=== PATIENT | female | born 1935 | race Caucasian/White ===

== ENCOUNTER → 2017-08-04 | Outpatient (CLI) | payer MEDICARE ==
--- NOTE | 2017-08-04 13:41 | XR ---
EXAMINATION TYPE: XR chest 2V DATE OF EXAM: 08/04/2017 COMPARISON: NONE HISTORY: Upper respiratory infection TECHNIQUE: Frontal and lateral views of the chest are obtained. FINDINGS: Increased AP diameter of the chest may be indicative of underlying COPD. The heart is enla rged. Difficult to exclude thoracic aortic aneurysm, patient is rotated. Postop change noted to the l eft shoulder. Arthropathy noted in the right shoulder. Pulmonary vascularity and nicholas within normal l imits. No focal airspace disease evident. No pneumothorax or pleural effusion. IMPRESSION: Cardiomegaly. Appearance of thoracic ectasia with the due to rotation, follow-up suggest ed.
== END | disposition home or self-care (01) ==
LOC: RADXRMAIN 12:06
PROVIDERS: ATTEND Internal Medicine
DX: I51.7 Cardiomegaly (principal); J06.9 Acute upper respiratory infection, unspecified
CPT/HCPCS: 71046

== ENCOUNTER → 2019-05-09 | Outpatient (CLI) | payer MEDICARE ==
--- NOTE | 2019-05-10 12:00 | ECHOF ---
Referral Reason:I50.9 Congestive heart failure MEASUREMENTS -------- HEIGHT: 154.9 cm WEIGHT: 74.4 kg BP: RVIDd: 4.5 cm (< 3.3) IVSd: 1.2 cm (0.6 - 1.1) LVIDd: 4.5 cm (3.9 - 5.3) LVPWd: 1.4 cm (0.6 - 1.1) IVSs: 2.1 cm LVIDs: 3.0 cm LVPWs: 1.4 cm LAESV Index (A-L): 35.61 ml/m Ao Diam: 3.1 cm (2.0 - 3.7) AV Cusp: 1.5 cm (1.5 - 2.6) MV EXCURSION: 20.824 mm (> 18.000) MV EF SLOPE: 136 mm/s (70 - 150) EPSS: 0.9 cm MV E Tong: 1.49 m/s MV DecT: 152 ms MV A Tong: 0.28 m/s MV E/A Ratio: 5.42 RAP: 5.00 mmHg RVSP: 56.59 mmHg FINDINGS -------- Sinus rhythm. Atrial fibrillation. This was a technically adequate study. The left ventricular size is normal. There is moderate concentric left ventricular hypertrophy. O verall left ventricular systolic function is normal with, an EF between 55 - 60 %. Increased Lap Gr kelly II Diastolic Dysfunction. The right ventricle is moderately enlarged. LA is moderately dilated 34-39 ml/m2 The right atrium is moderately enlarged. Interatrial and interventricular septum intact. The aortic valve was not well visualized. There is no evidence of aortic regurgitation. There is no evidence of aortic stenosis. Uxlu-ej-cfrgbkum mitral regurgitation is present. Moderate tricuspid regurgitation present. There is moderate pulmonary hypertension. The right marci tricular systolic pressure, as measured by Doppler, is 56.59mmHg. Trace/mild (physiologic) pulmonic regurgitation. The aortic root size is normal. The inferior vena cava is mildly dilated. The inferior vena cava is dilated with poor inspiratory c ollapse which is consistent with estimated right atrial pressure of 20 mmHg. There is no pericardial effusion. CONCLUSIONS -------- 1. Sinus rhythm. 2. Atrial fibrillation. 3. This was a technically adequate study. 4. The left ventricular size is normal. 5. There is moderate concentric left ventricular hypertrophy. 6. Overall left ventricular systolic function is normal with, an EF between 55 - 60 %. 7. Increased Lap Grade II Diastolic Dysfunction. 8. The right ventricle is moderately enlarged. 9. LA is moderately dilated 34-39 ml/m2 10. The right atrium is moderately enlarged. 11. Interatrial and interventricular septum intact. 12. The aortic valve was not well visualized. 13. There is no evidence of aortic regurgitation. 14. There is no evidence of aortic stenosis. 15. Yxah-np-cjngwwpi mitral regurgitation is present. 16. Moderate tricuspid regurgitation present. 17. There is moderate pulmonary hypertension. 18. The right ventricular systolic pressure, as measured by Doppler, is 56.59mmHg. 19. Trace/mild (physiologic) pulmonic regurgitation. 20. The aortic root size is normal. 21. The inferior vena cava is mildly dilated. 22. The inferior vena cava is dilated with poor inspiratory collapse which is consistent with estimat ed right atrial pressure of 20 mmHg. 23. There is no pericardial effusion. 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
== END | disposition home or self-care (01) ==
LOC: RADECHMAIN 16:08
PROVIDERS: ATTEND Internal Medicine
DX: I48.91 Unspecified atrial fibrillation (principal); I08.1 Rheumatic disorders of both mitral and tricuspid valves; I27.20 Pulmonary hypertension, unspecified; I50.9 Heart failure, unspecified
CPT/HCPCS: 93306

== ENCOUNTER 2020-05-02 15:15 | Inpatient (IN) | payer MEDICARE ==
[2020-05-02 15:30] LABS: Glucose,Whole Blood 143 mg/dL (75-99)
--- NOTE | 2020-05-02 15:37 | ED ---
General Adult HPI - General Chief complaint: Neuro Symptoms/Deficit Stated complaint: Trouble talking/cant remember PCP Time Seen by Provider: 05/02/20 15:23 Source: patient Mode of arrival: wheelchair Limitations: no limitations - History of Present Illness Initial comments: Dictation was produced using [employer] dictation software. please excuse any grammatical, word or spelling errors. This patient was cared for during a federal and state declared state of emergency secondary to Covid 19 Chief Complaint: 84-year-old female past medical history of thyroid disease hypertension presents with strokelike symptoms. History of Present Illness: 84-year-old female she was on the phone talking with a friend when she noted she was having difficulty speaking. Patient was concerned she was having a stroke because her has history of stroke. She came to the emergency department to be evaluated. Patient denies any numbness and paresthesias to the arms or legs patient denies any weakness to the extremities. No difficulty ambulating. Patient has history of hypertension. She has no history of stroke or transient ischemic attack. Patient states she still has trouble speaking which is unlike her. At approximately 9 AM was last time she felt like she was normal. She was having bile study with her family and was able to speak fluently. She does not know exactly when her symptoms started until she began talking approximately 1 PM today on the phone. The ROS documented in this emergency department record has been reviewed and confirmed by me. Those systems with pertinent positive or negative responses have been documented in the HPI. All other systems are other negative and/or noncontributory. PHYSICAL EXAM: General Impression: Alert and oriented x3, not in acute distress HEENT: Normocephalic atraumatic, extra-ocular movements intact, pupils equal and reactive to light bilaterally, mucous membranes moist. Cardiovascular: Heart regular rate and rhythm Chest: Able to complete full sentences, no retractions, no tachypnea Abdomen: abdomen soft, non-tender, non-distended, no organomegaly Musculoskeletal: Pulses present and equal in all extremities, no peripheral edema Motor: no focal deficits noted Neurological: CN II-XII grossly intact, no focal motor or sensory deficits noted, nih of 1 for mild word finding difficulties. Skin: Intact with no visualized rashes Psych: Normal affect and mood ED course: 84-year-old female with past medical history hypertension presents with strokelike symptoms. Patient given in NIH stroke scale score of 1 for mild word finding difficulties. She is coherent and able to identify all the words and speak clearly however has delayed responses. Vital signs upon arrival shows blood pressure 221/88, rest of vital signs within acceptable limits. Blood sugar is 140 at bedside. Code stroke was paged. Time of onset is not entirely clear however she noticed her symptoms initially at 1 PM. Patient not a candidate for TPA given low NIH score, unclear time of onset and risks outweigh the benefits. Case is discussed with stroke neurologist on-call Dr. Perez who recommended no TPA at this time given that there is no clear, onset of symptoms. CT brain and CT angioma of the head and neck shows no acute processes. No indication for thrombectomy. EKG shows A. fib. Patient is no history of cardiac dysrhythmias. Patient started on heparin.Laboratory evaluation obtained. CBC, coag panel, metabolic panel is unremarkable. Troponin is negative. Patient started on heparin for new onset atrial fibrillation. She is given an aspirin. [facility]. Neurology and cardiology will consult. EKG interpretation: Ventricular rate 44, A. fib, QRS 92, QTC 398. No MT prolongation, no QTC prolongation, no ST or T-wave changes noted. New-onset A. fib - Related Data Home Medications Medication Instructions Recorded Confirmed ALPRAZolam [Xanax] 0.25 mg PO HS PRN 05/02/20 05/02/20 Brimonidine Tartrate [Alphagan P 1 drops BOTH EYES BID 05/02/20 05/02/20 0.2% Ophth Soln] Levothyroxine Sodium [Synthroid] 100 mcg PO DAILY 05/02/20 05/02/20 Lisinopril [Zestril] 10 mg PO BID 05/02/20 05/02/20 NIFEdipine [Procardia XL] 60 mg PO DAILY 05/02/20 05/02/20 Allergies Allergy/AdvReac Type Severity Reaction Status Date / Time No Known Allergies Allergy Verified 04/29/19 12:26 Review of Systems ROS Statement: Those systems with pertinent positive or pertinent negative responses have been documented in the HPI. ROS Other: All systems not noted in ROS Statement are negative. Past Medical History Past Medical History: Hypertension History of Any Multi-Drug Resistant Organisms: None Reported Past Surgical History: Cholecystectomy, Orthopedic Surgery Past Psychological History: No Psychological Hx Reported Smoking Status: Never smoker Past Alcohol Use History: None Reported Past Drug Use History: None Reported General Exam Limitations: no limitations Course Vital Signs 05/02/20 05/02/20 05/02/20 15:20 15:30 15:45 Temperature 97.9 F Pulse Rate 60 60 51 L Respiratory 18 18 17 Rate Blood Pressure 221/88 134/75 115/65 O2 Sat by Pulse 95 96 96 Oximetry Medical Decision Making - Lab Data Result diagrams: 05/02/20 15:46 05/02/20 15:46 Lab Results 05/02/20 05/02/20 05/02/20 Range/Units 15:28 15:46 15:46 WBC 5.6 (3.8-10.6) k/uL RBC 5.39 (3.80-5.40) m/uL Hgb 16.3 H (11.4-16.0) gm/dL Hct 49.2 H (34.0-46.0) % MCV 91.3 (80.0-100.0) fL MCH 30.2 (25.0-35.0) pg MCHC 33.1 (31.0-37.0) g/dL RDW 13.0 (11.5-15.5) % Plt Count 265 (150-450) k/uL MPV 7.5 Neutrophils % 70 % Lymphocytes % 18 % Monocytes % 6 % Eosinophils % 3 % Basophils % 1 % Neutrophils # 3.9 (1.3-7.7) k/uL Lymphocytes # 1.0 (1.0-4.8) k/uL Monocytes # 0.4 (0-1.0) k/uL Eosinophils # 0.2 (0-0.7) k/uL Basophils # 0.0 (0-0.2) k/uL PT 10.6 (9.0-12.0) sec INR 1.0 (<1.2) APTT 23.5 (22.0-30.0) sec Sodium (137-145) mmol/L Potassium (3.5-5.1) mmol/L Chloride (98-107) mmol/L Carbon Dioxide (22-30) mmol/L Anion Gap mmol/L BUN (7-17) mg/dL Creatinine (0.52-1.04) mg/dL Est GFR (CKD-EPI)AfAm (>60 ml/min/1.73 sqM) Est GFR (CKD-EPI)NonAf (>60 ml/min/1.73 sqM) Glucose (74-99) mg/dL POC Glucose (mg/dL) 143 H (75-99) mg/dL POC Glu Buffet Runner ID Raymond Solomon Calcium (8.4-10.2) mg/dL Total Bilirubin (0.2-1.3) mg/dL AST (14-36) U/L ALT (4-34) U/L Alkaline Phosphatase (38-126) U/L Troponin I (0.000-0.034) ng/mL Total Protein (6.3-8.2) g/dL Albumin (3.5-5.0) g/dL 05/02/20 05/02/20 Range/Units 15:46 15:46 WBC (3.8-10.6) k/uL RBC (3.80-5.40) m/uL Hgb (11.4-16.0) gm/dL Hct (34.0-46.0) % MCV (80.0-100.0) fL MCH (25.0-35.0) pg MCHC (31.0-37.0) g/dL RDW (11.5-15.5) % Plt Count (150-450) k/uL MPV Neutrophils % % Lymphocytes % % Monocytes % % Eosinophils % % Basophils % % Neutrophils # (1.3-7.7) k/uL Lymphocytes # (1.0-4.8) k/uL Monocytes # (0-1.0) k/uL Eosinophils # (0-0.7) k/uL Basophils # (0-0.2) k/uL PT (9.0-12.0) sec INR (<1.2) APTT (22.0-30.0) sec Sodium 138 (137-145) mmol/L Potassium 3.9 (3.5-5.1) mmol/L Chloride 104 (98-107) mmol/L Carbon Dioxide 23 (22-30) mmol/L Anion Gap 11 mmol/L BUN 25 H (7-17) mg/dL Creatinine 0.80 (0.52-1.04) mg/dL Est GFR (CKD-EPI)AfAm 79 (>60 ml/min/1.73 sqM) Est GFR (CKD-EPI)NonAf 69 (>60 ml/min/1.73 sqM) Glucose 154 H (74-99) mg/dL POC Glucose (mg/dL) (75-99) mg/dL POC Glu Buffet Runner ID Calcium 9.8 (8.4-10.2) mg/dL Total Bilirubin 0.7 (0.2-1.3) mg/dL AST 31 (14-36) U/L ALT 24 (4-34) U/L Alkaline Phosphatase 100 (38-126) U/L Troponin I <0.012 (0.000-0.034) ng/mL Total Protein 7.8 (6.3-8.2) g/dL Albumin 4.6 (3.5-5.0) g/dL Critical Care Time Critical Care Time: Yes Total Critical Care Time: 33 Disposition Clinical Impression: Cerebrovascular accident (CVA), New onset a-fib Disposition: ADMITTED IP TO THIS HOSP Condition: Fair Referrals: None,Stated [REFERRING] - 1-2 days Decision Time: 17:10
--- NOTE | 2020-05-02 15:57 | CT ---
EXAMINATION TYPE: CT brain wo con for TPA DATE OF EXAM: 05/02/2020 HISTORY: Weakness CT DLP: 1081.8 mGycm. Automated Exposure Control for Dose Reduction was Utilized. TECHNIQUE: CT scan of the head is performed without contrast. COMPARISON: None. FINDINGS: There is no acute intracranial hemorrhage or midline shift identified. There is diffuse v entricular and sulcal prominence consistent with diffuse age-related cerebral atrophy greatest over t he bilateral frontal lobes. There is low-attenuation in the periventricular white matter consistent with chronic small vessel ischemic change. Areas of hyperostosis are present. Persistent anterior met opic suture incidentally noted. The globes are intact and the visualized sinuses are clear. IMPRESSION: No acute intracranial hemorrhage or midline shift. There is mild to moderate diffuse ag e-related cerebral atrophy and chronic small vessel ischemic change noted.
--- NOTE | 2020-05-02 16:14 | CT ---
EXAMINATION TYPE: CT angio head neck DATE OF EXAM: 05/02/2020 HISTORY: weakness, code stroke, acute onset neuro deficit. COMPARISON: CT DLP: 646.2 mGycm. Automated Exposure Control for Dose Reduction was Utilized. TECHNIQUE: CTA scan of the abdomen performed with IV Contrast, patient injected with 65 mL of Isovue 370, axial images are obtained, cor onal and sagittal reformatted images are reviewed. Three-D reconstructed images are created on an [employer] workstation and reviewed. FINDINGS: Carotid/Vascular Structures: Normal three-vessel origin from the aortic arch. Mild calcified peripher al plaque. Normal origin right common carotid artery from the right brachiocephalic artery. Mild to m oderate peripheral calcified plaque right carotid bulb extending into the internal and external carot id arteries without significant stenosis. Tortuous medial course to the right proximal internal carot id artery with then tortuous course proximal to mid segment. [id number] calcified plaque in the petrous and supraclinoid segments. No significant stenosis. Mild calcified plaque left carotid bulb extending into proximal internal carotid artery. Tortuous cou rse to the proximal to mid left internal carotid artery. [id number] calcified plaque in the pet jack and supraclinoid segments. No significant stenosis. Patent external carotid artery without signi ficant stenosis. No significant plaque or stenosis left common carotid artery. Codominant vertebrobasilar system. Vertebral arteries are patent to basilar junction. Hypoplastic lef t P1 segment with filling of the P2 segment due to tortuous but patent posterior communicating artery . Hypoplastic right posterior communicating artery. No significant focal stenosis or aneurysm. Images of the anterior circulation show patent anterior communicating artery on image 58 series 412. No sig nificant focal stenosis or aneurysmal change is evident. Other: Moderate to severe spurring and disc space narrowing C5-C6 level. Moderate disc space narrowin g C6-C7 level. Additional multilevel spurring in the spine. Metallic hardware from left shoulder surg betsey noted on localizer. IMPRESSION: No significant stenosis in common or internal carotid arteries bilaterally. No significa nt stenosis or aneurysmal at the level of the [place].
[2020-05-02 16:16] LABS: Basophils % (A) 1 %; Eosinophils # (A) 0.2 k/uL (0-0.7); Eosinophils % (A) 3 %; HCT 49.2 % (34.0-46.0); HGB 16.3 gm/dL (11.4-16.0); Lymphocytes % (A) 18 %; MCH 30.2 pg (25.0-35.0); MCHC 33.1 g/dL (31.0-37.0); MCV 91.3 fL (80.0-100.0); Mean Platelet Volume 7.5; Monocytes # (A) 0.4 k/uL (0-1.0); Monocytes % (A) 6 %; Neutrophils # (A) 3.9 k/uL (1.3-7.7); Neutrophils % (A) 70 %; Platelet Count 265 k/uL (150-450); RBC 5.39 m/uL (3.80-5.40); WBC 5.6 k/uL (3.8-10.6)
[2020-05-02 16:25] LABS: Partial Thromboplastin Time 23.5 sec (22.0-30.0); Prothrombin Time 10.6 sec (9.0-12.0)
[2020-05-02 16:29] LABS: Albumin 4.6 g/dL (3.5-5.0); Calcium 9.8 mg/dL (8.4-10.2); Potassium 3.9 mmol/L (3.5-5.1); Total Bilirubin 0.7 mg/dL (0.2-1.3); Total Protein 7.8 g/dL (6.3-8.2)
--- NOTE | 2020-05-02 16:32 | XR ---
EXAMINATION TYPE: XR chest 2V DATE OF EXAM: 05/02/2020 COMPARISON: Chest x-ray April 29, 2019 HISTORY: Altered mental status and weakness. TECHNIQUE: Frontal and lateral views of the chest are obtained. FINDINGS: There is some chronic parenchymal change without suspicious new focal air space opacity, p leural effusion, or pneumothorax seen. Persistent cardiomegaly with atherosclerotic and ectatic thora cic aorta. Advanced degenerative change right glenohumeral joint with interval degenerative progressi on. Partial visualization of surgical change left shoulder IMPRESSION: Chronic changes and cardiomegaly without new acute pulmonary process.
[2020-05-02] MEDS ORDERED: HEPARIN SODIUM,PORCINE 10,000 UNIT/ML 1 ML VIAL IV ONE (16:35)
[2020-05-02] MEDS ORDERED: HEPARIN SODIUM,PORCINE 5,000 UNIT/ML 1 ML VIAL IV PRN (16:35)
[2020-05-02] MEDS ORDERED: SODIUM CHLORIDE 0.9% 1,000 ML IV STA (16:40)
[2020-05-02] MEDS ORDERED: HEPARIN SOD,PORK IN 0.45% NACL 25,000 UNIT in 0.45% NACL 1 250ML.BAG IV SCH (16:45)
[2020-05-02] MEDS ORDERED: NALOXONE 0.4 MG/ML 1 ML VIAL IV PRN (17:06)
[2020-05-02] MEDS ORDERED: ONDANSETRON 4 MG/2 ML VIAL IVP PRN (17:06)
[2020-05-02] MEDS ORDERED: ASPIRIN 81 MG PO STA (17:09)
[2020-05-02] MEDS ORDERED: CLOPIDOGREL 75 MG TAB PO STA (20:03)
[2020-05-02] MEDS: SODIUM CHLORIDE 0.9% 1,000 ML IV SCH (20:14)
[2020-05-02] MEDS: lisinopriL 10 MG TAB PO SCH (20:25)
--- NOTE | 2020-05-02 22:09 | P.HPIM ---
History of Present Illness H&P Date: 05/02/20 Chief Complaint: speech dificulties 84 year old female with hypertension , hypothyroid patient comes in due to speech difficulties, that started all of a sudden this afternoon she reports being at her baseline status of health , she believes she had COVID infection back in Apr 2019, and another confirmed infection with covid in February 2020. however, she was at her doctor office yesterday and was told that she is in very good health. this morning she woke up feeling fine, however around early afternoon, while on the phone she had difficulties finding appropriate words, and her speech did not make sense to the other libertarian over the phone, her son was notified and she was brought to the hospital , she reports that her symptoms resolved while in the ED. she has no other associated symptoms, denies any headache , visual changes, focal neuro deficits, denies any weakness or numbness or gait issues. this has never happened before, she takes low dose aspirin on daily basis . in the ED, she was found to have afib with bradycardia, trops were negative, she denies any palpitations, dizziness, chest pain or trouble breathing. code stroke activated, CT of brain , CTA of head and neck no acute pathology , neurology has no recommendation s for any immediate intervention , NIH score was 1 for speech Review of Systems Pertinent positives as noted in HPI. All other systems were reviewed and are negative Past Medical History Past Medical History: Hypertension, Thyroid Disorder Additional Past Medical History / Comment(s): COVID- April 2019 and February 19 History of Any Multi-Drug Resistant Organisms: None Reported Past Surgical History: Cholecystectomy, Orthopedic Surgery Additional Past Surgical History / Comment(s): Hip surgery x3, Shoulder surgery Past Psychological History: No Psychological Hx Reported Smoking Status: Never smoker Past Alcohol Use History: None Reported Past Drug Use History: None Reported - Past Family History Mother Family Medical History: CVA/TIA Father Family Medical History: Diabetes Mellitus Medications and Allergies Home Medications Medication Instructions Recorded Confirmed Type ALPRAZolam [Xanax] 0.25 mg PO HS PRN 05/02/20 05/02/20 History Brimonidine Tartrate [Alphagan P 1 drops BOTH EYES BID 05/02/20 05/02/20 History 0.2% Ophth Soln] Levothyroxine Sodium [Synthroid] 100 mcg PO DAILY 05/02/20 05/02/20 History Lisinopril [Zestril] 10 mg PO BID 05/02/20 05/02/20 History NIFEdipine [Procardia XL] 60 mg PO DAILY 05/02/20 05/02/20 History Allergies Allergy/AdvReac Type Severity Reaction Status Date / Time No Known Allergies Allergy Verified 04/29/19 12:26 Physical Exam Vitals: Vital Signs Temp Pulse Pulse Resp BP BP Pulse Ox 05/02/20 19:00 97.2 F L 48 L 18 225/95 98 05/02/20 17:15 59 L 17 165/74 96 05/02/20 17:00 60 18 173/72 95 05/02/20 16:45 58 L 20 155/70 96 05/02/20 16:30 59 L 19 167/66 96 05/02/20 16:15 53 L 17 157/64 96 05/02/20 16:00 60 18 152/57 96 05/02/20 15:45 51 L 17 115/65 96 05/02/20 15:30 60 18 134/75 96 05/02/20 15:20 97.9 F 60 18 221/88 95 Intake and Output 05/02/20 05/02/20 05/02/20 06:59 14:59 22:59 Other: Weight 76.204 kg Constitutional: No acute distress, conversant, pleasant, her speech so unds appropriate unremarkable Eyes: Anicteric sclerae, moist conjunctiva, Pupils equal round reactive to light ENMT: NC/AT Oropharynx clear, no erythema, or exudates Neck: Supple, FROM, no masses, or JVD No carotid bruits No thyromegaly Lungs: Clear to auscultation Clear to percussion Normal respiratory effort, no accessory muscle use Cardiovascular: Heart regular in rhythm, bradycardia No murmurs, gallops, or rubs No peripheral edema Abdominal: Soft Nontender, no guarding, rebound or rigidity Abdomen moving with respiration Normoactive bowel sounds No hepatomegaly, No splenomegaly No palpable mass No abdominal wall hernia noted Skin: Normal temperature, tone, texture, turgor No induration No subcutaneous nodules No rash, lesions No ulcers Extremities: No digital cyanosis No clubbing Pedal pulses intact and symmetrical Radial pulses intact and symmetrical No calf tenderness Psychiatric: Alert and oriented to person, place and time Appropriate affect fair judgement Neuro Muscles Strength 4/5 in all 4 extremities Sensation to light touch grossly present throughout Cranial nerves II-XII grossly intact No focal sensory deficits finger nose intact Lymphatics: no palpable cervical or supraclavicular , or inguinal lymph nodes Results CBC & Chem 7: 05/02/20 15:46 05/02/20 15:46 Labs: Abnormal Lab Results - Last 24 Hours (Table) 05/02/20 05/02/20 05/02/20 Range/Units 15:28 15:46 15:46 Hgb 16.3 H (11.4-16.0) gm/dL Hct 49.2 H (34.0-46.0) % BUN 25 H (7-17) mg/dL Glucose 154 H (74-99) mg/dL POC Glucose (mg/dL) 143 H (75-99) mg/dL Thrombosis Risk Factor Assmnt - Choose All That Apply Each Factor Represents 1 point: Obesity (BMI >25) Each Risk Factor Represents 3 Points: Age 75 years or older Thrombosis Risk Factor Assessment Total Risk Factor Score: 4 Thrombosis Risk Factor Assessment Level: Moderate Risk Assessment and Plan Assessment: TIA, resolved new onset afib malignant hypertension chronic conditions hypertension , resume home BP meds hypothyroid, resume levothyroxine plan discontinue heparin drip which was started for afib, due to uncontrolled hypertension , current blood pressure 225/95, risk of bleeding, patient is a candidate for oral anticoagulation for stroke prophylaxis due to afib, once blood pressure is controlled start plavix, due to patient being already on aspirin at home, along with high ABCD2 score of 5 , DAPT suggested for 21 days, await further neurology recommendations fall precautions resume home BP meds neuro consult cardiology consult check echocardiogram check TSH PT eval neuro checks CODE STATUS:no code DVT prophylaxis: mechanical Discussed with: Patient, ER, RN Anticipated length of stay > than [address]: home A total of 75 minutes was spent on the care of this complex patient more than 50% of the time was spent in counseling and care coordination.
[2020-05-02 22:15] LABS: T4, Free (Free Thyroxine) 1.81 ng/dL (0.78-2.19)
[2020-05-02] MEDS: ALPRAZolam 0.25 MG TAB PO PRN (22:40)
[2020-05-03] MEDS ORDERED: LEVOTHYROXINE 100 MCG TAB PO SCH (06:30)
[2020-05-03 08:00] LABS: Basophils % (A) 1 %; Eosinophils # (A) 0.2 k/uL (0-0.7); Eosinophils % (A) 4 %; HCT 42.6 % (34.0-46.0); HGB 14.2 gm/dL (11.4-16.0); Lymphocytes # (A) 0.6 k/uL (1.0-4.8); Lymphocytes % (A) 12 %; MCH 30.5 pg (25.0-35.0); MCHC 33.3 g/dL (31.0-37.0); MCV 91.8 fL (80.0-100.0); Mean Platelet Volume 7.6; Monocytes # (A) 0.5 k/uL (0-1.0); Monocytes % (A) 9 %; Neutrophils # (A) 3.6 k/uL (1.3-7.7); Neutrophils % (A) 72 %; Platelet Count 235 k/uL (150-450); RBC 4.64 m/uL (3.80-5.40); RDW 13.2 % (11.5-15.5); WBC 5.1 k/uL (3.8-10.6)
[2020-05-03 08:12] LABS: Albumin 3.5 g/dL (3.5-5.0); Potassium 4.7 mmol/L (3.5-5.1); Total Bilirubin 0.7 mg/dL (0.2-1.3)
[2020-05-03] MEDS ORDERED: ASPIRIN 81 MG PO SCH (09:00)
[2020-05-03] MEDS: CLOPIDOGREL 75 MG TAB PO SCH (09:24)
[2020-05-03] MEDS: lisinopriL 10 MG TAB PO SCH (09:24)
[2020-05-03] MEDS: PANTOPRAZOLE 40 MG/10 ML VIAL IV SCH (09:25)
--- NOTE | 2020-05-03 10:51 | ECHOF ---
Referral Reason:tia, new afib MEASUREMENTS -------- HEIGHT: 154.9 cm WEIGHT: 78.0 kg BP: RVIDd: 2.1 cm (< 3.3) IVSd: 1.3 cm (0.6 - 1.1) LVIDd: 4.9 cm (3.9 - 5.3) LVPWd: 1.5 cm (0.6 - 1.1) IVSs: 1.8 cm LVIDs: 3.5 cm LVPWs: 1.7 cm LAESV Index (A-L): 33.21 ml/m Ao Diam: 2.4 cm (2.0 - 3.7) AV Cusp: 1.7 cm (1.5 - 2.6) LA Diam: 2.6 cm (2.7 - 3.8) MV EXCURSION: 13.536 mm (> 18.000) MV EF SLOPE: 81 mm/s (70 - 150) EPSS: 1.5 cm MV E Tong: 1.30 m/s MV DecT: 178 ms MV A Tong: 0.48 m/s MV E/A Ratio: 2.69 AR PHT: 375 ms RAP: 5.00 mmHg RVSP: 22.48 mmHg FINDINGS -------- This was a technically good study. The left ventricular size is normal. There is moderate concentric left ventricular hypertrophy. O verall left ventricular systolic function is normal with, an EF between 55 - 60 %. Normal LAP Grade 1 Diastolic Dysfunction. The right ventricle is normal in size. LA is midly dilated 29-33ml/m2. The right atrial size is normal. Aortic valve is trileaflet and is mildly thickened. Trace amount of aortic regurgitation. The mitral valve is normal. The mitral valve leaflets are mildly thickened. Mild mitral annular c alcification present. Mild mitral regurgitation is present. The tricuspid valve appears structurally normal. Mild tricuspid regurgitation present. Right vent ricular systolic pressure is normal at < 35 mmHg. There is no pulmonic regurgitation present. The aortic root size is normal. Normal inferior vena cava with normal inspiratory collapse consistent with estimated right atrial pre ssure of 5 mmHg. There is no pericardial effusion. CONCLUSIONS -------- 1. The left ventricular size is normal. 2. There is moderate concentric left ventricular hypertrophy. 3. Overall left ventricular systolic function is normal with, an EF between 55 - 60 %. 4. Normal LAP Grade 1 Diastolic Dysfunction. 5. LA is midly dilated 29-33ml/m2. 6. Aortic valve is trileaflet and is mildly thickened. 7. Trace amount of aortic regurgitation. 8. The mitral valve leaflets are mildly thickened. 9. Mild mitral annular calcification present. 10. Mild mitral regurgitation is present. 11. Mild tricuspid regurgitation present. 12. The aortic root size is normal. 13. There is no pericardial effusion. BENEFITS SPECIALIST RECRUITER: Camila Lacy RDCS
--- NOTE | 2020-05-03 12:22 | P.PN ---
Subjective Progress Note Date: 05/03/20 Principal diagnosis: Aphasia Patient is currently doing well. No recurrent symptoms. No blurred vision, no focal weakness or numbness. Objective - Vital Signs Vital signs: Vital Signs Temp 97.2 F L 05/02/20 19:00 Pulse 52 L 05/03/20 03:33 Resp 16 05/03/20 03:33 BP 175/81 05/03/20 03:33 Pulse Ox 96 05/03/20 03:33 Intake & Output 05/02/20 05/03/20 05/03/20 18:59 06:59 18:59 Intake Total 120 Balance 120 Weight 76.204 kg 78.3 kg Intake: Oral 120 Other: # Voids 1 # Bowel Movements 0 - Exam Constitutional: No acute distress, conversant, pleasant Eyes:Anicteric sclerae, moist conjunctiva, no lid-lag, PERRLA, ENMT: Oropharynx clear, no erythema, exudates Neck: Supple, FROM, no masses, or JVD, No carotid bruits, No thyromegaly Lungs: Clear to auscultation, Clear to percussion, Normal respiratory effort, no accessory muscle use Cardiovascular: Irregularly irregular, bradycardic No murmurs, gallops, or rubs, No peripheral edema Abdominal: Soft, Nontender, no guarding, rebound or rigidity, Normoactive bowel sounds, No hepatomegaly, No splenomegaly, No palpable mass Skin: Normal temperature, tone, texture, turgor, no induration, No subcutaneous nodules, No rash, lesions, No ulcers Extremities: No digital cyanosis, No clubbing, Pedal pulses intact and symmetrical, Radial pulses intact and symmetrical, No calf tenderness Psychiatric: Alert and oriented to person, place and time, appropriate affect, intact judgement Neuro: Muscles Strength 5/5 in all 4 extremities, Sensation to light touch g rossly present throughout, Cranial nerves II-XII grossly intact, no focal sensory deficits - Labs CBC & Chem 7: 05/03/20 06:42 05/03/20 06:42 Labs: Abnormal Lab Results - Last 24 Hours (Table) 05/02/20 05/02/20 05/02/20 Range/Units 15:28 15:46 15:46 Hgb 16.3 H (11.4-16.0) gm/dL Hct 49.2 H (34.0-46.0) % Lymphocytes # (1.0-4.8) k/uL Chloride (98-107) mmol/L BUN 25 H (7-17) mg/dL Glucose 154 H (74-99) mg/dL POC Glucose (mg/dL) 143 H (75-99) mg/dL Total Protein (6.3-8.2) g/dL TSH (0.465-4.680) mIU/L 05/02/20 05/03/20 05/03/20 Range/Units 15:46 06:42 06:42 Hgb (11.4-16.0) gm/dL Hct (34.0-46.0) % Lymphocytes # 0.6 L (1.0-4.8) k/uL Chloride 110 H (98-107) mmol/L BUN 23 H (7-17) mg/dL Glucose (74-99) mg/dL POC Glucose (mg/dL) (75-99) mg/dL Total Protein 6.0 L (6.3-8.2) g/dL TSH 0.195 L (0.465-4.680) mIU/L Assessment and Plan Plan: TIA, resolved Patient is already on aspirin, switch to Plavix. Start eliquis due to new finding of atrial fibrillation Neurology evaluation Echocardiogram reviewed, no significant abnormalities CT angiogram of the head and neck negative, PT evaluation and treatment Speech evaluation New onset afib with slow ventricular response Start eliquis Heart rate is currently low D/c Procardia Cardiology consult Malignant hypertension Improved Monitor blood pressure off Procardia Resume lisinopril, add HCTZ Hypothyroid, TSH is low, reduce levothyroxine dose CODE STATUS:no code DVT prophylaxis: AC Anticipated discharge place: home Anticipated discharge: 1-2 days
[2020-05-03] MEDS: APIXABAN 5 MG TAB PO SCH ×2 (12:36→20:06)
[2020-05-03] MEDS: LISINOPRIL-HCTZ 20-12.5 MG 1 EACH TAB PO SCH (12:36)
--- NOTE | 2020-05-03 13:57 | P.CRDCN ---
History of Present Illness History of present illness: HISTORY OF PRESENTING ILLNESS This is a pleasant 84-year-old female past medical history significant for hypertension, hypothyroidism and Covid 19 from February 2020. Patient believes she had Covid 19 back in April 2019 before testing had been performed as well as in February. Since April of last year she has had issues with occasional palpitations. She had been feeling fine up until yesterday when she noted trouble with coming up with her words and aphasia. She therefore called her son who brought her to the hospital and by the time she reached the hospital most of her symptoms had improved. In total this lasted for approximately 1 hour. She was found to be in new set atrial fibrillation with heart rates in the 40s. She is on Procardia 60 mg daily, lisinopril 10 mg twice a day at home. Her TSH was checked which was 0.195 with a free T4 of 1.8. She denies any chest pain, pressure and currently states she feels well. Her blood pressures have been elevated however she states that normally the automatic blood pressure cuff read higher and that she was just checked approximately 3 days ago by her primary care physician and was told that her blood pressure is normal. Patient was taken off of her Procardia this morning. Patient heart rate has remained in the 40s to occasionally 50s however she denies any lightheadedness and has felt fine walking around quite of the bathroom. She denies any history of syncope or near syncope. CTA of the carotids showed no significant disease. DIAGNOSTICS EKG reveals A. fib with heart rate 44, normal axis, nonspecific T-wave flattening. Chest xray chronic changes and cardiomegaly. Laboratory reviewed, blood cell 5.6, hemoglobin 16.3, creatinine 0.8, troponin negative 2, TSH 0.195, T4 1.8. Current cardiac medications include Eliquis 5 mg twice a day, Plavix 75 mg daily, lisinopril/hydrochlorothiazide 20/12.5. REVIEW OF SYSTEMS At the time of my exam: CONSTITUTIONAL: Denies fever or chills. CARDIOVASCULAR: Denies chest pain, shortness of breath, orthopnea, PND or palpitations. RESPIRATORY: Denies cough. GASTROINTESTINAL: Denies abdominal pain, diarrhea, constipation, nausea or vomiting. MUSCULOSKELETAL: Denies myalgias. NEUROLOGIC: Denies numbness, tingling or weakness. + Aphasia ENDOCRINE: Denies fatigue, weight change, polydipsia or polyurina. GENITOURINARY: Denies burning, hematuria or urgency with micturation. HEMATOLOGIC: Denies history of anemia or bleeding. PHYSICAL EXAMINATION Blood pressure 193/72 heart rate 42 afebrile and maintaining oxygen saturation on room air. CONSTITUTIONAL: No apparent distress. HEENT: Head is normocephalic. Pupils are equal, round. Sclerae anicteric. Mucous membranes of the mouth are moist. No JVD. No carotid bruit. CHEST EXAMINATION: Lungs are clear to auscultation. No chest wall tenderness is noted on palpation or with deep breathing. HEART EXAMINATION: Irregular rhythm, bradycardic rate. S1, S2 heard. No murmurs, gallops or rub. ABDOMEN: Soft, nontender. Positive bowel sounds. EXTREMITIES: 2+ peripheral pulses, no lower extremity edema and no calf tenderness. NEUROLOGIC EXAMINATION: Patient is awake, alert and oriented x3. ASSESSMENT 1. TIA 2. New-onset atrial fibrillation 3. Bradycardia, asymptomatic 4. Essential hypertension, currently elevated, likely component of compensatory mechanism from her TIA 5. History of hypothyroidism, TSH 0.195 PLAN Echocardiogram reviewed with ejection fraction 55-60% without significant valvular disease. Patient with new onset atrial fibrillation with slow ventricular rate. Agree with starting anticoagulation with Eliquis 5 mg twice a day. Patient additionally started on Plavix and defer to neurology, primary team. Patient does have asymptomatic bradycardia with heart rates in the 40s to 50s however denies any lightheadedness or near syncope. The Procardia is a dihydropyridine and should not cause any bradycardia. Therefore we will continue with Procardia as well as the lisinopril and hydrochlorothiazide. No further workup as an inpatient. If patient's blood pressure better controlled, patient may be discharged home with outpatient follow-up. Past Medical History Past Medical History: Hypertension, Thyroid Disorder Additional Past Medical History / Comment(s): COVID- April 2019 and February 2020 History of Any Multi-Drug Resistant Organisms: None Reported Past Surgical History: Cholecystectomy, Orthopedic Surgery Additional Past Surgical History / Comment(s): Hip surgery x3, Shoulder surgery Past Psychological History: No Psychological Hx Reported Smoking Status: Never smoker Past Alcohol Use History: None Reported Past Drug Use History: None Reported - Past Family History Mother Family Medical History: CVA/TIA Father Family Medical History: Diabetes Mellitus Medications and Allergies Home Medications Medication Instructions Recorded Confirmed Type ALPRAZolam [Xanax] 0.25 mg PO HS PRN 05/02/20 05/02/20 History Brimonidine Tartrate [Alphagan P 1 drops BOTH EYES BID 05/02/20 05/02/20 History 0.2% Ophth Soln] Levothyroxine Sodium [Synthroid] 100 mcg PO DAILY 05/02/20 05/02/20 History Lisinopril [Zestril] 10 mg PO BID 05/02/20 05/02/20 History NIFEdipine [Procardia XL] 60 mg PO DAILY 05/02/20 05/02/20 History Allergies Allergy/AdvReac Type Severity Reaction Status Date / Time No Known Allergies Allergy Verified 04/29/19 12:26 Physical Exam Vitals: Vital Signs Temp Pulse Pulse Resp BP BP Pulse Ox 05/03/20 12:09 98.3 F 42 L 18 193/72 97 05/03/20 08:09 98.1 F 45 L 18 189/76 97 05/03/20 03:33 52 L 16 175/81 96 05/02/20 23:10 47 L 16 139/63 96 05/02/20 21:25 143/65 05/02/20 20:39 188/89 05/02/20 20:31 195/81 05/02/20 20:00 40 L 16 181/76 96 05/02/20 19:00 97.2 F L 48 L 18 225/95 98 05/02/20 17:15 59 L 17 165/74 96 05/02/20 17:00 60 18 173/72 95 05/02/20 16:45 58 L 20 155/70 96 05/02/20 16:30 59 L 19 167/66 96 05/02/20 16:15 53 L 17 157/64 96 05/02/20 16:00 60 18 152/57 96 05/02/20 15:45 51 L 17 115/65 96 05/02/20 15:30 60 18 134/75 96 05/02/20 15:20 97.9 F 60 18 221/88 95 Intake and Output 05/02/20 05/03/20 05/03/20 22:59 06:59 14:59 Intake Total 240 Balance 240 Intake: Oral 240 Other: # Voids 1 1 1 # Bowel Movements 0 Weight 76.204 kg 78.3 kg Results 05/03/20 06:42 05/03/20 06:42 Cardiac Enzymes 05/02/20 05/02/20 05/02/20 Range/Units 15:46 15:46 20:03 AST 31 (14-36) U/L Troponin I <0.012 <0.012 (0.000-0.034) ng/mL 05/03/20 Range/Units 06:42 AST 24 (14-36) U/L Troponin I (0.000-0.034) ng/mL Coagulation 05/02/20 Range/Units 15:46 PT 10.6 (9.0-12.0) sec APTT 23.5 (22.0-30.0) sec CBC 05/02/20 05/03/20 Range/Units 15:46 06:42 WBC 5.6 5.1 (3.8-10.6) k/uL RBC 5.39 4.64 (3.80-5.40) m/uL Hgb 16.3 H 14.2 (11.4-16.0) gm/dL Hct 49.2 H 42.6 (34.0-46.0) % Plt Count 265 235 (150-450) k/uL Comprehensive Metabolic Panel 05/02/20 05/03/20 Range/Units 15:46 06:42 Sodium 138 141 (137-145) mmol/L Potassium 3.9 4.7 (3.5-5.1) mmol/L Chloride 104 110 H (98-107) mmol/L Carbon Dioxide 23 28 (22-30) mmol/L BUN 25 H 23 H (7-17) mg/dL Creatinine 0.80 0.87 (0.52-1.04) mg/dL Glucose 154 H 90 (74-99) mg/dL Calcium 9.8 9.0 (8.4-10.2) mg/dL AST 31 24 (14-36) U/L ALT 24 18 (4-34) U/L Alkaline Phosphatase 100 71 (38-126) U/L Total Protein 7.8 6.0 L (6.3-8.2) g/dL Albumin 4.6 3.5 (3.5-5.0) g/dL Current Medications Generic Name Dose Route Start Last Admin Trade Name Freq PRN Reason Stop Dose Admin Alprazolam 0.25 mg 05/02/20 21:03 05/02/20 22:40 Alprazolam 0.25 Mg Tab PO 0.25 mg TID PRN Administration Anxiety Apixaban 5 mg 05/03/20 12:30 05/03/20 12:36 Apixaban 5 Mg Tab PO 5 mg BID TYESHA Administration Clopidogrel Bisulfate 75 mg 05/03/20 09:00 05/03/20 09:24 Clopidogrel 75 Mg Tab PO 75 mg DAILY TYESHA Administration Lisinopril/HCTZ 1 each 05/03/20 12:15 05/03/20 12:36 Lisinopril-Hctz 20-12.5 Mg 1 Each Tab PO 1 each DAILY TYESHA Administration Sodium Chloride 1,000 mls @ 20 mls/hr 05/02/20 17:15 05/02/20 20:14 Saline 0.9% IV Not Given .Q24H TYESHA Levothyroxine Sodium 75 mcg 05/04/20 06:30 Levothyroxine 75 Mcg Tab PO DAILY@0630 TYESHA Naloxone HCl 0.2 mg 05/02/20 17:06 Naloxone 0.4 Mg/Ml 1 Ml Vial IV Q2M PRN Opioid Reversal Ondansetron HCl 4 mg 05/02/20 17:06 Ondansetron 4 Mg/2 Ml Vial IVP Q8HR PRN Nausea And Vomiting Pantoprazole Sodium 40 mg 05/03/20 09:00 05/03/20 09:25 Pantoprazole 40 Mg/10 Ml Vial IV 40 mg DAILY TYESHA Administration Intake and Output 05/02/20 05/03/20 05/03/20 22:59 06:59 14:59 Intake Total 240 Balance 240 Intake: Oral 240 Other: # Voids 1 1 1 # Bowel Movements 0 Weight 76.204 kg 78.3 kg 05/03/20 06:42 05/03/20 06:42
--- NOTE | 2020-05-03 14:54 | P.CNNES ---
History of Present Illness Consult date: 05/03/20 Requesting physician: Facundo Joshi Reason for Consult: Stroke symptoms History of Present Illness: Patient is a 84-year-old female came to the hospital yesterday at 3:15 PM with strokelike symptoms. Patient states that yesterday at around 1:30 PM she was talking to her cousin on the phone, when during conversation she noticed that she was having hard time talking. She hung up the phone and went to the living room and started reading the Bible. She was struggling with words, not able to read. She tried to tell her about her symptoms, was having difficulty getting words out. There was no associated facial droop, numbness tingling problem with the vision, headache or any problem with balance or diplopia. Patient came to ER. Stroke code was activated, and patient was considered not a candidate for TPA given low NIH stroke scale and unclear time of onset of symptoms. Risks outweigh the benefits. Vital signs on arrival blood pressure 221/88, pulse rate 60, temperature 97.9. The blood pressure did drop down to 134/75 right after. Patient's symptoms lasted for less than half an hour and then resolved. She is now back to normal. CT head showed no acute intracranial hemorrhage or midline shift. There is mild to moderate diffuse age-related cerebral atrophy and chronic small vessel isc hemic change. CTA of head and neck showed no significant stenosis in, and or internal carotid arteries bilaterally. No significant stenosis or aneurysm at the level of [place]. EKG shows atrial fibrillation with slow ventricular response. 2-D echo showed normal left ventricular size. Moderate concentric LVH. EF is 55-60%. Left atrium is mildly dilated. Trace amount of aortic regurgitation. Chest x-ray shows chronic changes and cardiomegaly without new acute pulmonary process. Patient has been seen by cardiology, and has been recommended to start Eliquis 5 mg twice a day. Patient has hypertension for long time, denies diabetes. Does not use tobacco. Patient states that in April 2019 she had Covid type symptoms. Testing for Covid was not available at the time. However she has definitive Covid infection in February 2020. Patient still has loss of taste sensation. Patient denies any history of strokes or TIA. However she patient states that since she had Covid in April, she has been having some palpitations off and on. It mainly occurs when she would get up from her chair to go to the bathroom, sometimes it happens but not every time, and not for long time. Patient's telemetry monitoring showing atrial fibrillation, atrial flutter, bradycardia, the lowest was 32. Review of Systems As above in detail. All other review of systems unremarkable. Past Medical History Past Medical History: Hypertension, Thyroid Disorder Additional Past Medical History / Comment(s): COVID- April 2019 and February 2020 History of Any Multi-Drug Resistant Organisms: None Reported Past Surgical History: Cholecystectomy, Orthopedic Surgery Additional Past Surgical History / Comment(s): Hip surgery x3, Shoulder surgery Past Psychological History: No Psychological Hx Reported Smoking Status: Never smoker Past Alcohol Use History: None Reported Past Drug Use History: None Reported - Past Family History Mother Family Medical History: CVA/TIA Father Family Medical History: Diabetes Mellitus Medications and Allergies Home Medications Medication Instructions Recorded Confirmed Type ALPRAZolam [Xanax] 0.25 mg PO HS PRN 05/02/20 05/02/20 History Brimonidine Tartrate [Alphagan P 1 drops BOTH EYES BID 05/02/20 05/02/20 History 0.2% Ophth Soln] Levothyroxine Sodium [Synthroid] 100 mcg PO DAILY 05/02/20 05/02/20 History Lisinopril [Zestril] 10 mg PO BID 05/02/20 05/02/20 History NIFEdipine [Procardia XL] 60 mg PO DAILY 05/02/20 05/02/20 History Allergies Allergy/AdvReac Type Severity Reaction Status Date / Time No Known Allergies Allergy Verified 04/29/19 12:26 Physical Examination - Vital Signs Vital Signs: Vital Signs Temp Pulse Pulse Resp BP BP Pulse Ox 05/03/20 03:33 52 L 16 175/81 96 05/02/20 23:10 47 L 16 139/63 96 05/02/20 21:25 143/65 05/02/20 20:39 188/89 05/02/20 20:31 195/81 05/02/20 20:00 40 L 16 181/76 96 05/02/20 19:00 97.2 F L 48 L 18 225/95 98 05/02/20 17:15 59 L 17 165/74 96 05/02/20 17:00 60 18 173/72 95 05/02/20 16:45 58 L 20 155/70 96 05/02/20 16:30 59 L 19 167/66 96 05/02/20 16:15 53 L 17 157/64 96 05/02/20 16:00 60 18 152/57 96 05/02/20 15:45 51 L 17 115/65 96 05/02/20 15:30 60 18 134/75 96 05/02/20 15:20 97.9 F 60 18 221/88 95 Intake and Output 05/02/20 05/03/20 05/03/20 22:59 06:59 14:59 Intake Total 120 Balance 120 Intake: Oral 120 Other: # Voids 1 1 # Bowel Movements 0 Weight 76.204 kg 78.3 kg On examination patient is an elderly female, very pleasant in no acute distress. Patient is alert awake oriented to time place and person. Speech and language functions are normal. Attention and concentration fund of knowledge is adequate. On cranial examination pupils are round and reactive to light, visual freed are full on confrontation, extraocular muscles are intact with no nystagmus. Face is symmetric, tongue protrudes to the midline. Palatal elevation and sensation normal, hearing and shoulder shrug normal. Facial sensation is normal. On muscle strength testing there is no pronator drift and the strength is normal in arms and legs distally and proximally. Reflexes are diminished and plantars are downgoing. Sensory to touch is equal. No ataxia for [id number] or [id number] testing. Tone and bulk of muscles normal. On general [place] there is no carotid bruit, S1 and S2 audible, abdomen soft nontender, chest is clear. Peripheral pulses present. No peripheral edema. Results - Laboratory Findings CBC and BMP: 05/03/20 06:42 05/03/20 06:42 Abnormal Lab Findings: Abnormal Labs 05/02/20 05/02/20 05/02/20 15:28 15:46 15:46 Hgb 16.3 H Hct 49.2 H Lymphocytes # Chloride BUN 25 H Glucose 154 H POC Glucose (mg/dL) 143 H Total Protein TSH 05/02/20 05/03/20 05/03/20 15:46 06:42 06:42 Hgb Hct Lymphocytes # 0.6 L Chloride 110 H BUN 23 H Glucose POC Glucose (mg/dL) Total Protein 6.0 L TSH 0.195 L Assessment and Plan Assessment: * Probable TIA manifesting with transient expressive aphasia, resolved within an hour. Current NIH stroke scale is 0. * New onset atrial fibrillation * Hypertension * Bradycardia. * Hypothyroidism Plan: * Patient currently on heparin drip. * Agree with starting on anticoagulation with Apixaban. * We will check fasting a.m. lipid panel and hemoglobin A1c.
[2020-05-03 17:03] VITALS: TEMP 99.2
[2020-05-03] MEDS: SODIUM CHLORIDE 0.9% 1,000 ML IV SCH (18:15)
[2020-05-04] MEDS: ALPRAZolam 0.25 MG TAB PO PRN (00:27)
[2020-05-04 04:20] LABS: Hemoglobin A1C 5.5 % (4.0-6.0)
[2020-05-04] MEDS ORDERED: LEVOTHYROXINE 75 MCG TAB PO SCH (06:30)
[2020-05-04] MEDS: APIXABAN 5 MG TAB PO SCH (09:21)
[2020-05-04] MEDS: LISINOPRIL-HCTZ 20-12.5 MG 1 EACH TAB PO SCH (09:21)
[2020-05-04] MEDS: CLOPIDOGREL 75 MG TAB PO SCH (09:21)
[2020-05-04] MEDS: PANTOPRAZOLE 40 MG/10 ML VIAL IV SCH (09:22)
[2020-05-04 09:43] LABS: Cholesterol 197 mg/dL (<200); HDL Cholesterol 56 mg/dL (40-60); LDL Cholesterol,Calculated 119 mg/dL (0-99); Triglycerides 108 mg/dL (<150)
[2020-05-04 09:57] VITALS: RESP 17
[2020-05-04 12:31] VITALS: BP 177/72; PULSE 43
--- NOTE | 2020-05-04 14:01 | P.DS ---
Providers Date of admission: 05/02/20 17:06 Expected date of discharge: 05/04/20 Attending physician: Zay Mercer MD Consults: 05/02/20 17:07 Consult Physician Routine Consulting Provider: Flaquita Staton Consult Reason/Comments: stroke symptoms Do you want consulting provider notified?: Yes 05/02/20 17:08 Consult Physician Routine Consulting Provider: Kendrick Ward Consult Reason/Comments: new onset afib Do you want consulting provider notified?: Yes Primary care physician: KEVIN Zamora Hospital Course: 84-year-old female came to the hospital with strokelike symptoms. Patient was talking to her cousin on the phone, when during conversation she noticed that she was having hard time talking. She hung up the phone and went to the living room and started reading the Bible. She was struggling with words, not able to read. She tried to tell her about her symptoms, was having difficulty getting words out. She knew what she wanted to say but couldn't say it. There was no associated facial droop, numbness, tingling, blurred or double vision, headache or any problem with balance or diplopia. Upon arrival to the ER she was already back to her baseline, she was not considered a candidate for TPA given low NIH stroke scale and unclear time of onset of symptoms. Vital signs on arrival showed blood pressure 221/88, pulse rate 60, temperature 97.9. CT head showed no acute intracranial hemorrhage or midline shift. There is mild to moderate diffuse age-related cerebral atrophy and chronic small vessel ischemic change. CTA of head and neck showed no significant stenosis or aneurysm in the arteries visualized. EKG showed atrial fibrillation with slow ventricular response. Chest x-ray shows chronic changes and cardiomegaly without new acute pulmonary process. Patient was subsequently admitted. 2-D echo showed normal left ventricular size. Moderate concentric LVH. EF is 55-60%. Left atrium is mildly dilated. Trace amount of aortic regurgitation. Patient has been seen by cardiology, was started on eliquis 5 mg twice a day. Further workup revealed TSH 0.195. Free T4 was normal at 1.8. Her levothyroxine dose was decreased to 88mcg/daily. Lipid profile showed elevated LDL at 119, HDL 56. Due to that she was started on pravastatin 20 mg daily. Throughout the hospitalization her blood pressure continues to be high and a third blood pressure lowering medication was considered necessary, due to that she was started on HCTZ. Patient was seen by neurology who advised to discontinue her aspirin as she was already started on anticoagulation treatment. Of note patient was taking aspirin for primary prophylaxis. She does not have history of coronary artery disease or any vasculopathies in the past. She did not have any recurrent symptoms throughout her hospital stay. Today she was stable for discharge. She was discharged home in stable condition. She was instructed to follow-up with her primary care physician. Patient Condition at Discharge: Fair Plan - Discharge Summary Discharge Rx Participant: Yes New Discharge Prescriptions: New Apixaban [Eliquis] 5 mg PO BID #60 tab Pravastatin Sodium [Pravachol] 20 mg PO DAILY 30 Days #30 tab Lisinopril-Hctz 20-12.5 mg [Zestoretic 20-12.5] 1 each PO DAILY 30 Days #30 tab Levothyroxine Sodium 88 mcg PO DAILY 30 Days #30 tablet Continue NIFEdipine [Procardia XL] 60 mg PO DAILY Lisinopril [Zestril] 10 mg PO BID Brimonidine Tartrate [Alphagan P 0.2% Ophth Soln] 1 drops BOTH EYES BID ALPRAZolam [Xanax] 0.25 mg PO HS PRN PRN Reason: Anxiety Discontinued Levothyroxine Sodium [Synthroid] 100 mcg PO DAILY Discharge Medication List ALPRAZolam [Xanax] 0.25 mg PO HS PRN 05/02/20 [History] Brimonidine Tartrate [Alphagan P 0.2% Ophth Soln] 1 drops BOTH EYES BID 05/02/20 [History] Lisinopril [Zestril] 10 mg PO BID 05/02/20 [History] NIFEdipine [Procardia XL] 60 mg PO DAILY 05/02/20 [History] Apixaban [Eliquis] 5 mg PO BID #60 tab 05/04/20 [Rx] Levothyroxine Sodium 88 mcg PO DAILY 30 Days #30 tablet 05/04/20 [Rx] Lisinopril-Hctz 20-12.5 mg [Zestoretic 20-12.5] 1 each PO DAILY 30 Days #30 tab 05/04/20 [Rx] Pravastatin Sodium [Pravachol] 20 mg PO DAILY 30 Days #30 tab 05/04/20 [Rx] Follow up Appointment(s)/Referral(s): Maldonado Mahoney DO [STAFF PHYSICIAN] - 1 Week None,Stated [REFERRING] - 1-2 days
--- NOTE | 2020-05-04 15:59 | P.PN ---
Subjective Progress Note Date: 05/04/20 HISTORY OF PRESENT ILLNESS: Patient examined at the bedside. She denies chest pain or pressure. Denies shortness of breath. Denies any dizziness or lightheadedness. She remains in atrial fibrillation with heart rate in the 40s. She is hoping to be discharged home today. PHYSICAL EXAM: VITAL SIGNS: Reviewed. GENERAL: Well-developed in no acute distress. NECK: Supple. No JVD or thyromegaly LUNGS: Respirations even and unlabored. Lungs essentially clear to auscultation bilaterally. HEART: Bradycardic. Irregular rate and rhythm. S1 and S2 heard. EXTREMITIES: Normal range of motion. No clubbing or cyanosis. Peripheral pulses intact. No lower extremity edema ASSESSMENT: 1. TIA 2. New-onset atrial fibrillation 3. Bradycardia, asymptomatic 4. Essential hypertension, currently elevated, likely component of compensatory mechanism from her TIA 5. History of hypothyroidism, TSH 0.195 PLAN: Continue current cardiac medications Patient is stable for discharge home today from a cardiac perspective. She is to follow up on an outpatient basis. Nurse practitioner note has been reviewed by physician. Signing provider agrees with the documented findings, assessment, and plan of care. Objective - Vital Signs Vital signs: Vital Signs Temp 99.2 F 05/03/20 16:09 Pulse 43 L 05/04/20 12:00 Resp 17 05/04/20 12:00 BP 177/72 05/04/20 12:00 Pulse Ox 95 05/04/20 12:00 Intake & Output 05/03/20 05/04/20 05/04/20 18:59 06:59 18:59 Intake Total 480 480 Balance 480 480 Weight 77.7 kg Intake: Oral 480 480 Other: # Voids 1 1 2 # Bowel Movements 0 - Labs CBC & Chem 7: 05/03/20 06:42 05/03/20 06:42 Labs: Abnormal Lab Results - Last 24 Hours (Table) 05/04/20 Range/Units 07:35 LDL Cholesterol, Calc 119 H (0-99) mg/dL
[2020-05-05] MEDS ORDERED: PANTOPRAZOLE 40 MG TABLET PO SCH (07:30)
== END 2020-05-04 15:09 | disposition home or self-care (01) | DRG 69 ==
LOC: EC 15:15 → 3SCARD 17:06
PROVIDERS: ADMIT Internal Medicine; ATTEND Internal Medicine
DX: G45.9 Transient cerebral ischemic attack, unspecified (principal); R47.01 Aphasia; I48.91 Unspecified atrial fibrillation; E03.9 Hypothyroidism, unspecified; I11.9 Hypertensive heart disease without heart failure; Z86.16 Personal history of COVID-19; Z79.02 Long term (current) use of antithrombotics/antiplatelets; Z79.01 Long term (current) use of anticoagulants; Z79.890 Hormone replacement therapy; Z79.899 Other long term (current) drug therapy; Z79.82 Long term (current) use of aspirin; Z83.3 Family history of diabetes mellitus; Z90.49 Acquired absence of other specified parts of digestive tract; Z98.890 Other specified postprocedural states; Z86.73 Personal history of transient ischemic attack (TIA), and cerebral infarction without residual deficits
CPT/HCPCS: 36415; 70450; 70496; 70498; 71046; 80053; 80061; 83036; 84439; 84443; 84484; 85025; 85610; 85730; 93005; 93306; 96365; 99291

== ENCOUNTER 2021-09-06 09:18 | Emergency (ER) | payer MEDICARE ==
[2021-09-06 09:33] VITALS: RESP 18; TEMP 98.2
[2021-09-06] MEDS ORDERED: SODIUM CHLORIDE 0.9% 1,000 ML IV ONE (10:09)
[2021-09-06 10:25] LABS: Basophils % (A) 0 %; Eosinophils # (A) 0.2 k/uL (0-0.7); Eosinophils % (A) 3 %; HCT 41.9 % (34.0-46.0); HGB 13.9 gm/dL (11.4-16.0); Lymphocytes # (A) 0.4 k/uL (1.0-4.8); Lymphocytes % (A) 6 %; MCH 31.9 pg (25.0-35.0); MCHC 33.3 g/dL (31.0-37.0); MCV 95.7 fL (80.0-100.0); Mean Platelet Volume 7.5; Monocytes # (A) 0.3 k/uL (0-1.0); Monocytes % (A) 4 %; Neutrophils # (A) 6.3 k/uL (1.3-7.7); Neutrophils % (A) 85 %; Platelet Count 230 k/uL (150-450); RBC 4.37 m/uL (3.80-5.40); RDW 13.3 % (11.5-15.5); WBC 7.4 k/uL (3.8-10.6)
--- NOTE | 2021-09-06 10:29 | XR ---
EXAMINATION TYPE: XR chest 2V DATE OF EXAM: 09/06/2021 COMPARISON: 05/02/2020 TECHNIQUE: PA and lateral views submitted. HISTORY: Cough and pain FINDINGS: The lungs are clear and there is no pneumothorax, pleural effusion, or focal pneumonia. The heart i s enlarged. Atherosclerotic changes aorta. Arthropathy of the right shoulder. Postsurgical change lef t shoulder. Degenerative change of the spine. Atherosclerotic change aorta. IMPRESSION: 1. No acute process.
[2021-09-06 10:34] LABS: Calcium 8.7 mg/dL (8.4-10.2); Total Bilirubin 0.7 mg/dL (0.2-1.3); Total Protein 6.7 g/dL (6.3-8.2)
[2021-09-06] MEDS ORDERED: IPRATROPIUM-ALBUTEROL 3 ML NEB INHALATION STA (10:54)
[2021-09-06 11:11] VITALS: BP 152/81
--- NOTE | 2021-09-06 11:28 | ED ---
General Adult HPI - General Chief complaint: Upper Respiratory Infection Stated complaint: IRVIN Time Seen by Provider: 09/06/21 09:20 Source: patient Mode of arrival: ambulatory Limitations: no limitations - History of Present Illness Initial comments: 86-year-old female presents emergency Department with nonproductive cough. States that for the past 2 days she has felt fatigued with a cough and a fever. She denies any sick contacts. Has had Covid twice previously. Denies loss of sense of smell. Is vaccinated. No previous pulmonary issues to include COPD or asthma. She denies any chest pain. No respiratory difficulties. No nausea, vomiting or diarrhea. No black or bloody stools. No issues with her urination. Not currently taking any mpzv-oeb-plihtls medications. No inhaler use. No alleviating, precipitating or modifying factors - Related Data Home Medications Medication Instructions Recorded Confirmed ALPRAZolam [Xanax] 0.25 mg PO DAILY PRN 05/02/20 09/06/21 Brimonidine Tartrate [Alphagan P 1 drops BOTH EYES BID 05/02/20 09/06/21 0.2% Ophth Soln] NIFEdipine [Procardia XL] 60 mg PO DAILY 05/02/20 09/06/21 Cholecalciferol [Vitamin D3 (25 25 mcg PO DAILY 09/06/21 09/06/21 Mcg = 1000 Iu)] Cyanocobalamin (Vitamin B-12) 5,000 mcg PO DAILY 09/06/21 09/06/21 [Vitamin B-12] Levothyroxine Sodium [Synthroid] 50 mcg PO WERNER 09/06/21 09/06/21 Levothyroxine Sodium [Synthroid] 100 mcg PO MOTUWETHFRSA 09/06/21 09/06/21 Lisinopril-Hctz 20-12.5 mg 1 tab PO DAILY 09/06/21 09/06/21 [Zestoretic 20-12.5] Magnesium Oxide [Mag-Ox] 400 mg PO DAILY 09/06/21 09/06/21 Dutton-3 Fatty Acids/Fish Oil [Fish 1 cap PO DAILY 09/06/21 09/06/21 Oil 1,000 mg Softgel] Turmeric Root Extract [Turmeric] 500 mg PO DAILY 09/06/21 09/06/21 Vit C/E/Zn/Coppr/Lutein/Zeaxan 1 cap PO DAILY 09/06/21 09/06/21 [Preservision Areds 2 Softgel] Vitamin A Acetate [Vitamin A] 10,000 unit SL DAILY 09/06/21 09/06/21 Vitamin B Complex 1 cap PO DAILY 09/06/21 09/06/21 Previous Rx's Medication Instructions Recorded Apixaban [Eliquis] 5 mg PO BID #60 tab 05/04/20 Albuterol Sulfate [Proair Hfa] 1 - 2 puff INHALATION Q4HR PRN 09/06/21 #8.5 gm Azithromycin [Zithromax Z-pack (6 0 mg PO DIRECTED #6 tab 09/06/21 tabs)] Benzonatate [Tessalon Perles] 100 mg PO TID PRN #15 capsule 09/06/21 guaiFENesin-Coden 100-10MG/5ML 10 ml PO Q6H PRN 3 Days #120 ml 09/06/21 [Robitussin AC] Allergies Allergy/AdvReac Type Severity Reaction Status Date / Time No Known Allergies Allergy Verified 09/06/21 10:01 Review of Systems ROS Statement: Those systems with pertinent positive or pertinent negative responses have been documented in the HPI. ROS Other: All systems not noted in ROS Statement are negative. Past Medical History Past Medical History: Hypertension, Thyroid Disorder Additional Past Medical History / Comment(s): COVID- April 2019 and February 2020 History of Any Multi-Drug Resistant Organisms: None Reported Past Surgical History: Cholecystectomy, Orthopedic Surgery Additional Past Surgical History / Comment(s): Hip surgery x3, Shoulder surgery Past Psychological History: No Psychological Hx Reported Smoking Status: Never smoker Past Alcohol Use History: None Reported Past Drug Use History: None Reported - Past Family History Mother Family Medical History: CVA/TIA Father Family Medical History: Diabetes Mellitus General Exam Limitations: no limitations General appearance: alert, in no apparent distress Head exam: Present: atraumatic, normocephalic, normal inspection Eye exam: Present: normal appearance, PERRL, EOMI. Absent: scleral icterus, conjunctival injection, periorbital swelling ENT exam: Present: normal exam, mucous membranes moist Neck exam: Present: normal inspection. Absent: tenderness, meningismus, lym phadenopathy Respiratory exam: Present: normal lung sounds bilaterally. Absent: respiratory distress, wheezes, rales, rhonchi, stridor Cardiovascular Exam: Present: regular rate, normal rhythm, normal heart sounds. Absent: systolic murmur, diastolic murmur, rubs, gallop, clicks GI/Abdominal exam: Present: soft, normal bowel sounds. Absent: distended, tenderness, guarding, rebound, rigid Extremities exam: Present: normal inspection, full ROM, normal capillary refill. Absent: tenderness, pedal edema, joint swelling, calf tenderness Back exam: Present: normal inspection Neurological exam: Present: alert, oriented X3, CN II-XII intact Psychiatric exam: Present: normal affect, normal mood Skin exam: Present: warm, dry, intact, normal color. Absent: rash Course Vital Signs 09/06/21 09/06/21 09/06/21 09:19 09:22 11:00 Temperature 98.2 F Pulse Rate 68 53 L Respiratory 18 18 18 Rate Blood Pressure 157/69 152/81 O2 Sat by Pulse 96 95 Oximetry 09/06/21 09/06/21 11:27 11:41 Temperature Pulse Rate 45 L 45 L Respiratory Rate Blood Pressure O2 Sat by Pulse Oximetry Medical Decision Making - Medical Decision Making Upon arrival patient is placed into room 9. A thorough history and physical exam was performed. Patient is swabbed for covid and influenza. Laboratory studies were conducted and chest x-rays performed. Laboratory studies are reviewed. Covid and influenza are negative. Chest x-ray clear of pneumonia. Patient given a breathing treatment. Will be discharged home with Tessalon Perles, codeine cough syrup, azithromycin and an albuterol inhaler. Instructed to follow-up with the primary care doctor in 2-4 days and return for any new or worsening symptoms. Patient agreed she will buy was discharged home in stable condition - Lab Data Result diagrams: 09/06/21 10:12 09/06/21 10:12 Lab Results 09/06/21 09/06/21 09/06/21 Range/Units 10:12 10:12 10:12 WBC 7.4 (3.8-10.6) k/uL RBC 4.37 (3.80-5.40) m/uL Hgb 13.9 (11.4-16.0) gm/dL Hct 41.9 (34.0-46.0) % MCV 95.7 (80.0-100.0) fL MCH 31.9 (25.0-35.0) pg MCHC 33.3 (31.0-37.0) g/dL RDW 13.3 (11.5-15.5) % Plt Count 230 (150-450) k/uL MPV 7.5 Neutrophils % 85 % Lymphocytes % 6 % Monocytes % 4 % Eosinophils % 3 % Basophils % 0 % Neutrophils # 6.3 (1.3-7.7) k/uL Lymphocytes # 0.4 L (1.0-4.8) k/uL Monocytes # 0.3 (0-1.0) k/uL Eosinophils # 0.2 (0-0.7) k/uL Basophils # 0.0 (0-0.2) k/uL Sodium (137-145) mmol/L Potassium (3.5-5.1) mmol/L Chloride (98-107) mmol/L Carbon Dioxide (22-30) mmol/L Anion Gap mmol/L BUN (7-17) mg/dL Creatinine (0.52-1.04) mg/dL Est GFR (CKD-EPI)AfAm (>60 ml/min/1.73 sqM) Est GFR (CKD-EPI)NonAf (>60 ml/min/1.73 sqM) Glucose (74-99) mg/dL Calcium (8.4-10.2) mg/dL Total Bilirubin (0.2-1.3) mg/dL AST (14-36) U/L ALT (4-34) U/L Alkaline Phosphatase (38-126) U/L Total Protein (6.3-8.2) g/dL Albumin (3.5-5.0) g/dL Coronavirus (PCR) Not Detected (Not Detectd) Influenza Type A RNA Not Detected (Not Detectd) Influenza Type B (PCR) Not Detected (Not Detectd) 09/06/21 Range/Units 10:12 WBC (3.8-10.6) k/uL RBC (3.80-5.40) m/uL Hgb (11.4-16.0) gm/dL Hct (34.0-46.0) % MCV (80.0-100.0) fL MCH (25.0-35.0) pg MCHC (31.0-37.0) g/dL RDW (11.5-15.5) % Plt Count (150-450) k/uL MPV Neutrophils % % Lymphocytes % % Monocytes % % Eosinophils % % Basophils % % Neutrophils # (1.3-7.7) k/uL Lymphocytes # (1.0-4.8) k/uL Monocytes # (0-1.0) k/uL Eosinophils # (0-0.7) k/uL Basophils # (0-0.2) k/uL Sodium 137 (137-145) mmol/L Potassium 4.0 (3.5-5.1) mmol/L Chloride 103 (98-107) mmol/L Carbon Dioxide 24 (22-30) mmol/L Anion Gap 10 mmol/L BUN 26 H (7-17) mg/dL Creatinine 0.84 (0.52-1.04) mg/dL Est GFR (CKD-EPI)AfAm 73 (>60 ml/min/1.73 sqM) Est GFR (CKD-EPI)NonAf 64 (>60 ml/min/1.73 sqM) Glucose 149 H (74-99) mg/dL Calcium 8.7 (8.4-10.2) mg/dL Total Bilirubin 0.7 (0.2-1.3) mg/dL AST 27 (14-36) U/L ALT 18 (4-34) U/L Alkaline Phosphatase 83 (38-126) U/L Total Protein 6.7 (6.3-8.2) g/dL Albumin 4.0 (3.5-5.0) g/dL Coronavirus (PCR) (Not Detectd) Influenza Type A RNA (Not Detectd) Influenza Type B (PCR) (Not Detectd) Disposition Clinical Impression: Cough Disposition: HOME SELF-CARE Condition: Stable Instructions (If sedation given, give patient instructions): Upper Respiratory Infection (ED) Additional Instructions: Please take the medications as directed and follow-up with primary care doctor. Return to the emergency room for any new or worsening symptoms Prescriptions: Albuterol Sulfate [Proair Hfa] 1 - 2 puff INHALATION Q4HR PRN #8.5 gm PRN Reason: difficulty in breathing guaiFENesin-Coden 100-10MG/5ML [Robitussin AC] 10 ml PO Q6H PRN 3 Days #120 ml PRN Reason: Cough Benzonatate [Tessalon Perles] 100 mg PO TID PRN #15 capsule PRN Reason: Cough Azithromycin [Zithromax Z-pack (6 tabs)] 0 mg PO DIRECTED #6 tab Is patient prescribed a controlled substance at d/c from ED?: No Referrals: Brad Malone MD [Primary Care Provider] - 1-2 days Time of Disposition: 11:28
[2021-09-06 11:32] VITALS: PULSE 45
== END 2021-09-06 11:47 | disposition home or self-care (01) ==
LOC: EC 09:18
DX: R05.9 Cough, unspecified (principal); I10 Essential (primary) hypertension; E07.9 Disorder of thyroid, unspecified; Z79.1 Long term (current) use of non-steroidal anti-inflammatories (NSAID); Z20.822 Contact with and (suspected) exposure to COVID-19
CPT/HCPCS: 36415; 71046; 80053; 85025; 87502; 87635; 94640

== ENCOUNTER → 2024-02-29 | Outpatient (CLI) | payer MEDICARE ==
--- NOTE | 2024-03-01 11:55 | XR ---
EXAMINATION TYPE: XR chest 2V DATE OF EXAM: 02/29/2024 1:47 PM COMPARISON: Chest radiographs from 2021 CLINICAL INDICATION: Female, 88 years old with history of R60.0; [facility] TECHNIQUE: XR chest 2V Frontal and lateral views of the chest. FINDINGS: Lungs/Pleura: Flattening of the diaphragm present. There is no evidence of pleural effusion, focal co nsolidation, or pneumothorax. Pulmonary vascularity: Pulmonary vascular congestion. Heart/mediastinum: Cardiomediastinal silhouette is enlarged and stable. Atherosclerotic calcificatio ns are seen in the aorta. Musculoskeletal: No acute osseous pathology. Left shoulder arthroplasty appears intact. Severe degene ration changes right shoulder. IMPRESSION: 1. Cardiomegaly, pulmonary vascular congestion and bilateral pleural effusions. Correlate with BNP f or congestive heart failure. 2. COPD changes. [facility], , 03/01/2024 11:53 AM
== END | disposition home or self-care (01) ==
LOC: RADXRMAIN 13:31
PROVIDERS: ATTEND Internal Medicine
DX: J44.9 Chronic obstructive pulmonary disease, unspecified (principal); I51.7 Cardiomegaly; J90 Pleural effusion, not elsewhere classified; R09.89 Other specified symptoms and signs involving the circulatory and respiratory systems
CPT/HCPCS: 71046

== ENCOUNTER 2024-05-18 12:24 | Observation (INO) | payer MEDICARE ==
--- NOTE | 2024-05-18 13:05 | ED ---
Arrhythmia/Palpitations HPI - General Chief Complaint: Arrhythmia/Palpitations Stated Complaint: Hypertension, heart palpitations Time Seen by Provider: 05/18/24 12:44 Source: patient, RN notes reviewed, old records reviewed Mode of arrival: wheelchair Limitations: no limitations - History of Present Illness Initial Comments: This is a 88 female to the ER for evaluation patient presents today for evaluation regards to palpitations anxiety chest pain shortness of breath MD Complaint: rapid heart beat, "heart racing", palpitations, irregular heart beat, atrial fibrillation -: hour(s), days(s) Arrhythmia History: atrial fibrillation Associated Symptoms: denies other symptoms Treatments Prior to Arrival: other (0) - Related Data Home Medications Medication Instructions Recorded Confirmed ALPRAZolam [Xanax] 0.25 mg PO DAILY PRN 05/02/20 05/18/24 Levothyroxine Sodium [Synthroid] 50 mcg PO WERNER 09/06/21 05/18/24 Levothyroxine Sodium [Synthroid] 100 mcg PO MOTUWETHFRSA 09/06/21 05/18/24 Amitriptyline HCl [Elavil] 10 mg PO HS 05/18/24 05/18/24 Dorzolamide 2% [Trusopt 2%] 1 drop BOTH EYES BID 05/18/24 05/18/24 Furosemide [Lasix] 40 mg PO DAILY 05/18/24 05/18/24 Potassium Chloride ER [K-Dur 20] 10 meq PO DAILY 05/18/24 05/18/24 hydrALAZINE HCL [Apresoline] 100 mg PO BID 05/18/24 05/18/24 Previous Rx's Medication Instructions Recorded Apixaban [Eliquis] 5 mg PO BID #60 tab 05/04/20 NIFEdipine XL [Procardia XL] 30 mg PO 1200 #0 05/21/24 Spironolactone [Aldactone] 25 mg PO DAILY #60 tab 05/21/24 Valsartan [Diovan] 160 mg PO BID #120 tab 05/21/24 Allergies Allergy/AdvReac Type Severity Reaction Status Date / Time No Known Allergies Allergy Verified 05/18/24 13:01 Review of Systems ROS Statement: Those systems with pertinent positive or pertinent negative responses have been documented in the HPI. ROS Other: All systems not noted in ROS Statement are negative. Past Medical History Past Medical History: Hypertension, Thyroid Disorder Additional Past Medical History / Comment(s): COVID- April 2019 and February 2020 History of Any Multi-Drug Resistant Organisms: None Reported Past Surgical History: Cholecystectomy, Orthopedic Surgery Additional Past Surgical History / Comment(s): Hip surgery x3, Shoulder surgery Past Psychological History: No Psychological Hx Reported Smoking Status: Never smoker Past Alcohol Use History: None Reported Past Drug Use History: None Reported - Past Family History Mother Family Medical History: CVA/TIA Father Family Medical History: Diabetes Mellitus General Exam Limitations: no limitations General appearance: anxious Head exam: Present: atraumatic, normocephalic, normal inspection Eye exam: Present: normal appearance, PERRL, EOMI. Absent: scleral icterus, conjunctival injection, periorbital swelling ENT exam: Present: normal exam, mucous membranes moist Neck exam: Present: normal inspection. Absent: tenderness, meningismus, lymphadenopathy Respiratory exam: Present: normal lung sounds bilaterally. Absent: respiratory distress, wheezes, rales, rhonchi, stridor Cardiovascular Exam: Present: normal rhythm, bradycardia, normal heart sounds. Absent: systolic murmur, diastolic murmur, rubs, gallop, clicks GI/Abdominal exam: Present: soft, normal bowel sounds. Absent: distended, tenderness, guarding, rebound, rigid Extremities exam: Present: normal inspection, full ROM, normal capillary refill. Absent: tenderness, pedal edema, joint swelling, calf tenderness Back exam: Present: normal inspection Neurological exam: Present: alert, oriented X3, CN II-XII intact Psychiatric exam: Present: normal affect, normal mood Skin exam: Present: warm, dry, intact, normal color. 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 ] Respiratory 16 16 16 Rate Blood Pressure 191/80 171/66 129/86 Blood Pressure [Right Arm] O2 Sat by Pulse 98 96 99 Oximetry 05/18/24 05/18/24 05/18/24 14:47 15:00 16:00 Temperature Pulse Rate 40 L 34 L Pulse Rate [ 35 L Refinery Operator Helper ] Respiratory 16 18 Rate Blood Pressure 168/60 165/63 Blood Pressure [Right Arm] O2 Sat by Pulse 97 96 Oximetry 05/18/24 05/18/24 05/19/24 20:56 22:30 00:07 Temperature 99.1 F 97.7 F Pulse Rate 42 L 41 L 46 L Pulse Rate [ Refinery Operator Helper ] Respiratory 16 16 16 Rate Blood Pressure 170/107 147/60 150/62 Blood Pressure [Right Arm] O2 Sat by Pulse 96 97 95 Oximetry 05/19/24 05/19/24 05/19/24 02:47 05:48 08:00 Temperature 98.3 F Pulse Rate 48 L 42 L Pulse Rate [ 32 L Refinery Operator Helper ] Respiratory 16 16 16 Rate Blood Pressure 153/57 151/61 Blood Pressure 151/78 [Right Arm] O2 Sat by Pulse 96 99 97 Oximetry 05/19/24 12:00 Temperature Pulse Rate Pulse Rate [ 56 L Refinery Operator Helper ] Respiratory 16 Rate Blood Pressure Blood Pressure 165/67 [Right Arm] O2 Sat by Pulse 97 Oximetry - Reevaluation(s) Reevaluation #1: 05/18/24 14:27 Medical records reviewed Reevaluation #2: 05/18/24 14:27 Patient heart is lowering here in the ER Reevaluation #3: 05/18/24 14:27 Patient informed of results questions answered Reevaluation #4: Was pt. sent in by a medical professional or institution (, PA, MANAGER ORACLE DATABASE, urgent care, hospital, or penitentiary...) When possible be specific @ -no Did you speak to anyone other than the patient for history (EMS, parent, family, police, friend...)? What history was obtained from this source @ -no Did you review nursing and triage notes (agree or disagree)? Why? @ -agree Are old charts reviewed (outside hosp., previous admission, EMS record, old EKG, old radiological studies, urgent care reports/EKG's, penitentiary records)? Report findings @ -yes Differential Diagnosis (chest pain, altered mental status, abdominal pain women, abdominal pain men, vaginal bleeding, weakness, fever, dyspnea, syncope, headache, dizziness, GI bleed, back pain, seizure, CVA, palpatations, mental health, musculoskeletal)? @ -prior EKG interpreted by me (3pts min.). @ -yes X-rays interpreted by me (1pt min.). @ -yes negative for acute disease CT interpreted by me (1pt min.). @ -no U/S interpreted by me (1pt. min.). @ -no What testing was considered but not performed or refused? (CT, X-rays, U/S, labs)? Why? @ -none What meds were considered but not given or refused? Why? @ -none Did you discuss the management of the patient with other professionals (professionals i.e. Dr., PA, MANAGER [employer], lab, RT, psych nurse, rn social services, bandoleer straightener stamper, teacher, chief lifestyle officer, director of casework services)? Give summary @ -no Was smoking cessation discussed for >3mins.? @ -no Was critical care preformed (if so, how long)? @ -yes31 Were there social determinants of health that impacted care today? How? ( Homelessness, low income, unemployed, alcoholism, drug addiction, transportation, low edu. Level, literacy, decrease access to med. care, alf, rehab)? @ -none Was there de-escalation of care discussed even if they declined (Discuss DNR or withdrawal of care, Hospice)? DNR status @ -no What co-morbidities impacted this encounter? (DM, HTN, Smoking, COPD, CAD, Cancer, CVA, ARF, Chemo, Hep., AIDS, mental health diagnosis, sleep apnea, morbid obesity)? @ -none Was patient admitted / discharged? Hospital course, mention meds given and route, prescriptions, significant lab abnormalities, going to OR and other pertinent info. @ - 88 female patient will be hypertension admitted for palpitations bradycardia atrial fibrillation cardiology evaluation regarding a history of A- fib and hypertension patient will be admitted for cardiology evaluation Admitted Undiagnosed new problem with uncertain prognosis? @ -no Drug Therapy requiring intensive monitoring for toxicity (Heparin, Nitro, Insulin, Cardizem)? @ -no Were any procedures done? @ -no Diagnosis/symptom? @ -A-fib with RVR hypertension and palpitations Acute, or Chronic, or Acute on Chronic? @ -Acute Uncomplicated (without systemic symptoms) or Complicated (systemic symptoms)? @ -Complicated Side effects of treatment? @ -no Exacerbation, Progression, or Severe Exacerbation? @ -exacerbation Poses a threat to life or bodily function? How? (Chest pain, [place], [place], pneumonia, PE, COPD, DKA, ARF, appy, cholecystitis, CVA, Diverticulitis, Homicidal, Suicidal, threat to staff... and all critical care pts) @ -yes arrhythmia Reevaluation #5: Differential Palpitations Ventricular arrhythmias, atrial arrhythmias, myocardial infarction, anemia, thyrotoxicosis, electrolyte imbalance, hypokalemia, pulmonary embolism, pulmonary disease, drugs, alcohol, anxiety, stress.... This is not meant to be an all-inclusive list. EKG Findings - EKG Comments: EKG Findings:: EKG is A-fib 59 QRS 106 QTc 420 - EKG Results: EKG: interpreted by SHEREE Medical Decision Making - Medical Decision Making 88 female patient will be hypertension admitted for palpitations bradycardia atrial fibrillation cardiology evaluation regarding a history of A-fib and hypertension patient will be admitted for cardiology evaluation - Lab Data Result diagrams: 05/20/24 06:05 05/21/24 06:41 Lab Results 05/18/24 05/18/24 05/18/24 Range/Units 13:06 13:06 13:06 WBC 7.4 (3.8-10.6) k/uL RBC 4.88 (3.80-5.40) m/uL Hgb 15.2 (11.4-16.0) gm/dL Hct 45.6 (34.0-46.0) % MCV 93.5 (80.0-100.0) fL MCH 31.2 (25.0-35.0) pg MCHC 33.4 (31.0-37.0) g/dL RDW 12.9 (11.5-15.5) % Plt Count 261 (150-450) k/uL MPV 7.6 Neutrophils % 76 % Lymphocytes % 17 % Monocytes % 4 % Eosinophils % 1 % Basophils % 0 % Neutrophils # 5.7 (1.3-7.7) k/uL Lymphocytes # 1.2 (1.0-4.8) k/uL Monocytes # 0.3 (0-1.0) k/uL Eosinophils # 0.1 (0-0.7) k/uL Basophils # 0.0 (0-0.2) k/uL PT 11.3 (10.0-12.5) sec INR 1.0 (<1.2) APTT 26.5 (22.0-30.0) sec Sodium 135 L (137-145) mmol/L Potassium 4.7 (3.5-5.1) mmol/L Chloride 96 L (98-107) mmol/L Carbon Dioxide 25 (22-30) mmol/L Anion Gap 14 mmol/L BUN 40 H (7-17) mg/dL Creatinine 0.93 (0.52-1.04) mg/dL Est GFR (CKD-EPI)AfAm 64 (>60 ml/min/1.73 sqM) Est GFR (CKD-EPI)NonAf 56 (>60 ml/min/1.73 sqM) Glucose 163 H (74-99) mg/dL Calcium 10.2 (8.4-10.2) mg/dL Phosphorus 3.3 (2.5-4.5) mg/dL Magnesium 2.1 (1.6-2.3) mg/dL Total Bilirubin 0.8 (0.2-1.3) mg/dL AST 32 (14-36) U/L ALT 22 (4-34) U/L Alkaline Phosphatase 80 (38-126) U/L Troponin I (0.000-0.034) ng/mL NT-Pro-B Natriuret Pep 977 pg/mL Total Protein 7.2 (6.3-8.2) g/dL Albumin 4.5 (3.5-5.0) g/dL TSH 4.210 (0.465-4.680) mIU/L 05/18/24 Range/Units 13:06 WBC (3.8-10.6) k/uL RBC (3.80-5.40) m/uL Hgb (11.4-16.0) gm/dL Hct (34.0-46.0) % MCV (80.0-100.0) fL MCH (25.0-35.0) pg MCHC (31.0-37.0) g/dL RDW (11.5-15.5) % Plt Count (150-450) k/uL MPV Neutrophils % % Lymphocytes % % Monocytes % % Eosinophils % % Basophils % % Neutrophils # (1.3-7.7) k/uL Lymphocytes # (1.0-4.8) k/uL Monocytes # (0-1.0) k/uL Eosinophils # (0-0.7) k/uL Basophils # (0-0.2) k/uL PT (10.0-12.5) sec INR (<1.2) APTT (22.0-30.0) sec Sodium (137-145) mmol/L Potassium (3.5-5.1) mmol/L Chloride (98-107) mmol/L Carbon Dioxide (22-30) mmol/L Anion Gap mmol/L BUN (7-17) mg/dL Creatinine (0.52-1.04) mg/dL Est GFR (CKD-EPI)AfAm (>60 ml/min/1.73 sqM) Est GFR (CKD-EPI)NonAf (>60 ml/min/1.73 sqM) Glucose (74-99) mg/dL Calcium (8.4-10.2) mg/dL Phosphorus (2.5-4.5) mg/dL Magnesium (1.6-2.3) mg/dL Total Bilirubin (0.2-1.3) mg/dL AST (14-36) U/L ALT (4-34) U/L Alkaline Phosphatase (38-126) U/L Troponin I 0.025 (0.000-0.034) ng/mL NT-Pro-B Natriuret Pep pg/mL Total Protein (6.3-8.2) g/dL Albumin (3.5-5.0) g/dL TSH (0.465-4.680) mIU/L - EKG Data -: EKG Interpreted by Me (EKG repeat is A-fib 40 QRS 102 QTc 434) - Radiology Data Radiology results: report reviewed (Chest x-ray is negative for acute disease), image reviewed Critical Care Time Critical Care Time: Yes Total Critical Care Time: 31 Disposition Clinical Impression: Atrial fibrillation, Atrial flutter, Palpitations, Bradycardia Disposition: ADMITTED IP TO THIS [facility] Condition: Serious Is patient prescribed a controlled substance at d/c from ED?: No Time of Disposition: 14:30
[2024-05-18 13:22] LABS: Basophils % (A) 0 %; Eosinophils # (A) 0.1 k/uL (0-0.7); Eosinophils % (A) 1 %; HCT 45.6 % (34.0-46.0); HGB 15.2 gm/dL (11.4-16.0); Lymphocytes # (A) 1.2 k/uL (1.0-4.8); Lymphocytes % (A) 17 %; MCH 31.2 pg (25.0-35.0); MCHC 33.4 g/dL (31.0-37.0); MCV 93.5 fL (80.0-100.0); Mean Platelet Volume 7.6; Monocytes # (A) 0.3 k/uL (0-1.0); Monocytes % (A) 4 %; Neutrophils # (A) 5.7 k/uL (1.3-7.7); Neutrophils % (A) 76 %; Platelet Count 261 k/uL (150-450); RBC 4.88 m/uL (3.80-5.40); RDW 12.9 % (11.5-15.5); WBC 7.4 k/uL (3.8-10.6)
--- NOTE | 2024-05-18 13:30 | XR ---
EXAMINATION TYPE: XR chest 2V DATE OF EXAM: 05/18/2024 1:22 PM COMPARISON: Chest radiographs from 02/29/2024 TECHNIQUE: XR chest 2V Frontal and lateral views of the chest. CLINICAL INDICATION:Female, 88 years old with history of Weakness; FINDINGS: Lungs/Pleura: There is no evidence of pleural effusion, focal consolidation, or pneumothorax. Chroni c parenchymal change. Pulmonary vascularity: Unremarkable. Heart/mediastinum: Cardiomediastinal silhouette is enlarged and stable. Atherosclerotic calcificatio ns are seen in the aorta. Musculoskeletal: Multiple level degenerative disc disease changes seen throughout the spine. Advanced right shoulder arthropathy. Left shoulder arthroplasty change. IMPRESSION: Chronic changes and cardiomegaly without new acute pulmonary process. [facility], , 05/18/2024 1:28 PM
[2024-05-18 13:38] LABS: AST 32 U/L (14-36); African American GFR (CKD) 64 (>60 ml/min/1.73 sqM); Albumin 4.5 g/dL (3.5-5.0); Anion Gap 14 mmol/L; Blood Urea Nitrogen 40 mg/dL (7-17); Calcium 10.2 mg/dL (8.4-10.2); Carbon Dioxide 25 mmol/L (22-30); Chloride 96 mmol/L (98-107); Glucose 163 mg/dL (74-99); Magnesium 2.1 mg/dL (1.6-2.3); Non-African American GFR(CKD) 56 (>60 ml/min/1.73 sqM); Phosphorus 3.3 mg/dL (2.5-4.5); Potassium 4.7 mmol/L (3.5-5.1); Sodium 135 mmol/L (137-145); Total Bilirubin 0.8 mg/dL (0.2-1.3); Total Protein 7.2 g/dL (6.3-8.2)
[2024-05-18 13:39] LABS: ALT 22 U/L (4-34); Alkaline Phosphatase 80 U/L (38-126)
[2024-05-18] MEDS: LABETALOL 5 MG/ML VIAL MDV IVP STA (13:45)
[2024-05-18] MEDS: SODIUM CHLORIDE 0.9% 1,000 ML IV STA (13:45)
[2024-05-18 13:47] LABS: NT-Pro-B-Type Natriuretic Pept 977 pg/mL
[2024-05-18 14:13] LABS: Partial Thromboplastin Time 26.5 sec (22.0-30.0); Prothrombin Time 11.3 sec (10.0-12.5)
[2024-05-18] MEDS ORDERED: NALOXONE 0.4 MG/ML 1 ML VIAL IV PRN (14:29)
[2024-05-18] MEDS ORDERED: ONDANSETRON 4 MG/2 ML VIAL IVP PRN (14:29)
[2024-05-18] MEDS ORDERED: MORPHINE SULFATE 4 MG/ML SYRINGE IV PRN (14:29)
[2024-05-18] MEDS: SODIUM CHLORIDE 0.9% 1,000 ML IV SCH (15:25)
--- NOTE | 2024-05-18 16:49 | P.HPIM ---
History of Present Illness H&P Date: 05/18/24 History of Presenting Illness: Patient is a very pleasant 88-year-old female with a past medical history of atrial fibrillation on anticoagulation with Eliquis, hypertension, and hypothyroidism. She presented to the emergency department with a chief compla int of palpitations and elevated blood pressures. Patient reports she was just sitting there and suddenly felt as though her heart was pounding out of her chest and states that she checked her blood pressure and it was very high so she came to the emergency department for evaluation. 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 Patient denies having any fevers, chills, diaphoresis, headache, lightheadedness, dizziness, chest pain, shortness of breath, cough or congestion, nausea, vomiting, or experiencing any numbness/tingling/weakness/swelling in her extremities. Patient reports palpitations resolved shortly after arriving in the emergency department. Upon arrival to our facility, patient underwent evaluation in the emergency department. Vital signs upon arrival show blood pressure 191/80, heart rate 67, respiratory rate 16, temp 97.5 F, and SpO2 of 98% on room air. Patient was given labetalol in the emergency department. EKG was completed showing atrial fibrillation with a slow ventricular response of 59 bpm. Patient's heart rate decreasing in the emergency department down into the 30s. X-ray completed negative for acute cardiopulmonary process. Labs completed and reviewed. CBC unremarkable. Coagulation profile normal findings. BMP showing sodium 135, chloride 96, and mild prerenal azotemia with BUN of 40. Blood glucose 163. Liver profile unremarkable. Troponin 0.025 proBNP 977 and TSH 4.210. Patient admitted under our services with consultation to cardiology. Review of systems: Pertinent positives and negatives as discussed in HPI, a complete review of systems was performed and all other systems are negative. Physical exam: Vital signs reviewed and stable. General: Nontoxic, no distress and appears stated age. Derm: Skin warm and dry, normal coloration for ethnicity. Head: Atraumatic, normocephalic and symmetric. Eyes: EOM's intact, no lid lag, and anicteric sclera Mouth: no lip lesions, mucus membranes moist Cardiovascular: Bradycardic rate regular rhythm with normal S1S2, no murmur, positive posterior tibial pulses bilaterally, and cap refill < 2 seconds. Lungs: Respirations even, regular, and unlabored on room air. Lungs CTA bilaterally, no rhonchi, no rales, no wheezing, and no accessory muscle usage. Abdominal: soft, nontender to palpation, no guarding, no appreciable organomegaly Ext: ROM intact. No gross muscle atrophy, no edema, no contractures Neuro: Speech clear, face symmetrical and CN II-XII grossly intact with no noted focal neuro deficits Psych: Alert and oriented to person, place, time, and situation. Appropriate and pleasant affect. Assessment and Plan of Care: Atrial fibrillation with a slowed ventricular response Cardiology consulted appreciate recommendations. Patient to remain on continuous telemetry monitoring. Avoid AV elena blocking agents Hold Elavil and Procardia Trend troponins Obtain repeat EKG Continue Eliquis 5 mg twice daily. Hypertension Monitor vital signs and continue lisinopril 40 mg daily and hydralazine 100 mg twice daily. Hypothyroidism Continue levothyroxine 100 mcg daily with the exception of Thursday taking reduced dose of 50 mcg. TSH normal findings 4.210. Data and imaging reviewed: As stated above in HPI CODE STATUS: Full code DVT prophylaxis: Eliquis Anticipated discharge date: Pending clinical course Anticipated discharge place: Home Patient was seen independently by Nurse Practitioner. This document was prepared using [employer] dictation software. Please allow for errors in line maintainer while rare they do occur. Federico Harding NP rendered care for this patient independently, reviewed the findings and plan as documented in the note above and agree with plan. I did not physically speak with or examine the patient on this date. Past Medical History Past Medical History: Hypertension, Thyroid Disorder Additional Past Medical History / Comment(s): COVID- April 2019 and February 2020 History of Any Multi-Drug Resistant Organisms: None Reported Past Surgical History: Cholecystectomy, Orthopedic Surgery Additional Past Surgical History / Comment(s): Hip surgery x3, Shoulder surgery Past Psychological History: No Psychological Hx Reported Smoking Status: Never smoker Past Alcohol Use History: None Reported Past Drug Use History: None Reported - Past Family History Mother Family Medical History: CVA/TIA Father Family Medical History: Diabetes Mellitus Medications and Allergies Home Medications Medication Instructions Recorded Confirmed Type ALPRAZolam [Xanax] 0.25 mg PO DAILY PRN 05/02/20 05/18/24 History Apixaban [Eliquis] 5 mg PO BID #60 tab 05/04/20 05/18/24 Rx Levothyroxine Sodium [Synthroid] 50 mcg PO WERNER 09/06/21 05/18/24 History Levothyroxine Sodium [Synthroid] 100 mcg PO MOTUWETHFRSA 09/06/21 05/18/24 History Amitriptyline HCl [Elavil] 10 mg PO HS 05/18/24 05/18/24 History Dorzolamide 2% [Trusopt 2%] 1 drop BOTH EYES BID 05/18/24 05/18/24 History Furosemide [Lasix] 40 mg PO DAILY 05/18/24 05/18/24 History NIFEdipine XL [Procardia Xl] 30 mg PO DAILY 05/18/24 05/18/24 History Potassium Chloride ER [K-Dur 20] 10 meq PO DAILY 05/18/24 05/18/24 History hydrALAZINE HCL [Apresoline] 100 mg PO BID 05/18/24 05/18/24 History lisinopriL 40 mg PO DAILY 05/18/24 05/18/24 History Allergies Allergy/AdvReac Type Severity Reaction Status Date / Time No Known Allergies Allergy Verified 05/18/24 13:01 Physical Exam Vitals: Vital Signs Temp Pulse Pulse Resp BP Pulse Ox 05/18/24 15:00 40 L 16 168/60 97 05/18/24 14:47 35 L 05/18/24 13:49 36 L 16 129/86 99 05/18/24 13:40 58 L 16 171/66 96 05/18/24 12:27 97.5 F L 67 16 191/80 98 Intake and Output 05/18/24 05/18/24 05/18/24 06:59 14:59 22:59 Other: Weight 70.307 kg Results CBC & Chem 7: 05/18/24 13:06 05/18/24 13:06 Labs: Abnormal Lab Results - Last 24 Hours (Table) 05/18/24 Range/Units 13:06 Sodium 135 L (137-145) mmol/L Chloride 96 L (98-107) mmol/L BUN 40 H (7-17) mg/dL Glucose 163 H (74-99) mg/dL
[2024-05-18] MEDS ORDERED: DEXTROSE 50% SYRINGE 50 ML IVP PRN ×2 (18:02)
[2024-05-18] MEDS: APIXABAN 5 MG TAB PO SCH (21:04)
[2024-05-18] MEDS: hydrALAZINE HCL 50 MG TAB PO SCH (21:04)
[2024-05-18] MEDS: DORZOLAMIDE HCL 2% DROPS 10 ML BTL BOTH EYES SCH (21:05)
[2024-05-18] MEDS: ALPRAZolam 0.25 MG TAB PO PRN (23:06)
[2024-05-19] MEDS: ACETAMINOPHEN TAB 325 MG TAB PO PRN (03:14)
[2024-05-19 03:20] LABS: Glucose,Whole Blood 91 mg/dL (70-110)
[2024-05-19 05:48] LABS: Basophils % (A) 1 %; Eosinophils # (A) 0.1 k/uL (0-0.7); Eosinophils % (A) 3 %; HCT 39.6 % (34.0-46.0); Lymphocytes # (A) 0.9 k/uL (1.0-4.8); Lymphocytes % (A) 18 %; MCH 30.8 pg (25.0-35.0); MCHC 32.8 g/dL (31.0-37.0); MCV 93.9 fL (80.0-100.0); Mean Platelet Volume 7.2; Monocytes # (A) 0.5 k/uL (0-1.0); Monocytes % (A) 9 %; Neutrophils # (A) 3.3 k/uL (1.3-7.7); Neutrophils % (A) 67 %; Platelet Count 209 k/uL (150-450); RBC 4.21 m/uL (3.80-5.40); RDW 12.6 % (11.5-15.5)
[2024-05-19] MEDS: LEVOTHYROXINE 100 MCG TAB PO SCH (05:49)
[2024-05-19 06:55] LABS: ALT 18 U/L (4-34); AST 24 U/L (14-36); African American GFR (CKD) 64 (>60 ml/min/1.73 sqM); Albumin 3.5 g/dL (3.5-5.0); Alkaline Phosphatase 63 U/L (38-126); Anion Gap 7 mmol/L; Blood Urea Nitrogen 26 mg/dL (7-17); Calcium 9.2 mg/dL (8.4-10.2); Carbon Dioxide 28 mmol/L (22-30); Chloride 101 mmol/L (98-107); Glucose 95 mg/dL (74-99); Magnesium 1.9 mg/dL (1.6-2.3); Non-African American GFR(CKD) 56 (>60 ml/min/1.73 sqM); Potassium 3.7 mmol/L (3.5-5.1); Sodium 136 mmol/L (137-145); Total Bilirubin 0.7 mg/dL (0.2-1.3); Total Protein 5.8 g/dL (6.3-8.2)
--- NOTE | 2024-05-19 08:40 | P.CRDCN ---
History of Present Illness Consult date: 05/19/24 Reason for Consult (text): Bradycardia History of present illness: This is an 88-year-old female patient of Dr. Mahoney with past medical history of hypertension, hypothyroidism, COVID-19, TIA, atrial fibrillation with bradycardia. We have been asked to evaluate the patient for bradycardia. Patient states that 2 nights ago she felt that her blood pressure was high. She checks it on a daily basis. She also had a sensation that her heart was pounding in her chest which she does not normally have. She denies having any weakness, dizziness, lightheadedness, no syncope or near syncope. She denies headache or blurred vision. No dyspnea on exertion. She states that her heart rate usually runs in the high 30s or low 40s and has been for years. She states that she was previously on a medication like lisinopril hydrochlorothiazide but was taken off it last summer by her PCP and she was not sure why. She states she filled up with fluid after that and was placed on Lasix and has been continued on that since. Patient also states that she has recently moved in with her daughter and gave up her home of 59 years and this has been very stressful. She her daughter states that she has had some anxiety or panic attacks periodically over her life span. Manual blood pressure 151/68. -EKG: X 3 with atrial fibrillation running between 33 and 59 bpm. -Chest x-ray: No acute process. -Laboratory studies: CBC normal. Sodium 136, BUN 26, creatinine 0.93. Troponin 0.025, 0.032 and 0.035. -Home cardiac medications: Eliquis 5 mg twice daily, Lasix 40 mg daily, hydralazine 100 mg twice daily, lisinopril 40 mg daily, Procardia XL 30 mg daily, potassium 10 mEq daily. -Echocardiogram performed 05/03/2020 revealed EF of 55 to 60%, trace AR, mild MR and TR. Review Of Systems: At the time of my exam: CONSTITUTIONAL: Denies fever or chills. HEENT: Denies blurred vision, vision changes, or eye pain. Denies hemoptysis CARDIOVASCULAR: Denies chest pain. Denies orthopnea. Denies PND. Denies palpitations RESPIRATORY: Denies shortness of breath. GASTROINTESTINAL: Denies abdominal pain. Denies nausea or vomiting. HEMATOLOGIC: Denies bleeding disorders. GENITOURINARY: Denies any blood in urine. SKIN: Denies puritis. Denies rash. Physical examination: Gen: This is an 88-year-old female in no acute distress. VS: reviewed HEENT: Head is atraumatic, normocephalic. Pupils equal, round. Sclerae is anicteric. NECK: Supple. No JVD. LUNGS: Clear to auscultation. No wheezes or rhonchi. No intercostal retractions. HEART: Irregular rate and rhythm. No murmur. ABDOMEN: Soft No tenderness. EXTREMITIES: No pedal edema. No calf tenderness. NEUROLOGICAL: Patient is awake, alert and oriented x3. Assessment: Uncontrolled hypertension Chronic atrial fibrillation Chronic bradycardia Hypertension Hypothyroidism TIA Plan: Resume patient's home cardiac medications with the following changes Discontinue lisinopril and start patient on valsartan 160 mg twice daily Change Procardia to noon dosing Resume Lasix tomorrow Monitor blood pressure closely Obtain 2-D echocardiogram and Doppler study to assess cardiac structure and function Further recommendations to follow based upon clinical course Thank you kindly for this consultation. Nurse practitioner note has been reviewed, I agree with documented findings and plan of care. Patient was seen and examined. Past Medical History Past Medical History: Hypertension, Thyroid Disorder Additional Past Medical History / Comment(s): COVID- April 2019 and February 2020 History of Any Multi-Drug Resistant Organisms: None Reported Past Surgical History: Cholecystectomy, Orthopedic Surgery Additional Past Surgical History / Comment(s): Hip surgery x3, Shoulder surgery Past Psychological History: No Psychological Hx Reported Smoking Status: Never smoker Past Alcohol Use History: None Reported Past Drug Use History: None Reported - Past Family History Mother Family Medical History: CVA/TIA Father Family Medical History: Diabetes Mellitus Medications and Allergies Home Medications Medication Instructions Recorded Confirmed Type ALPRAZolam [Xanax] 0.25 mg PO DAILY PRN 05/02/20 05/18/24 History Apixaban [Eliquis] 5 mg PO BID #60 tab 05/04/20 05/18/24 Rx Levothyroxine Sodium [Synthroid] 50 mcg PO WERNER 09/06/21 05/18/24 History Levothyroxine Sodium [Synthroid] 100 mcg PO MOTUWETHFRSA 09/06/21 05/18/24 History Amitriptyline HCl [Elavil] 10 mg PO HS 05/18/24 05/18/24 History Dorzolamide 2% [Trusopt 2%] 1 drop BOTH EYES BID 05/18/24 05/18/24 History Furosemide [Lasix] 40 mg PO DAILY 05/18/24 05/18/24 History NIFEdipine XL [Procardia Xl] 30 mg PO DAILY 05/18/24 05/18/24 History Potassium Chloride ER [K-Dur 20] 10 meq PO DAILY 05/18/24 05/18/24 History hydrALAZINE HCL [Apresoline] 100 mg PO BID 05/18/24 05/18/24 History lisinopriL 40 mg PO DAILY 05/18/24 05/18/24 History Allergies Allergy/AdvReac Type Severity Reaction Status Date / Time No Known Allergies Allergy Verified 05/18/24 13:01 Physical Exam Vitals: Vital Signs Temp Pulse Pulse Resp BP Pulse Ox 05/19/24 05:48 98.3 F 42 L 16 151/61 99 05/19/24 02:47 48 L 16 153/57 96 05/19/24 00:07 97.7 F 46 L 16 150/62 95 05/18/24 22:30 41 L 16 147/60 97 05/18/24 20:56 99.1 F 42 L 16 170/107 96 05/18/24 16:00 34 L 18 165/63 96 05/18/24 15:00 40 L 16 168/60 97 05/18/24 14:47 35 L 05/18/24 13:49 36 L 16 129/86 99 05/18/24 13:40 58 L 16 171/66 96 05/18/24 12:27 97.5 F L 67 16 191/80 98 Results 05/19/24 05:10 05/19/24 05:10 Cardiac Enzymes 05/18/24 05/18/24 05/18/24 Range/Units 13:06 13:06 18:22 AST 32 (14-36) U/L Troponin I 0.025 0.032 (0.000-0.034) ng/mL 05/18/24 05/19/24 Range/Units 20:52 05:10 AST 24 (14-36) U/L Troponin I 0.035 H* (0.000-0.034) ng/mL Coagulation 05/18/24 Range/Units 13:06 PT 11.3 (10.0-12.5) sec APTT 26.5 (22.0-30.0) sec CBC 05/18/24 05/19/24 Range/Units 13:06 05:10 WBC 7.4 5.0 (3.8-10.6) k/uL RBC 4.88 4.21 (3.80-5.40) m/uL Hgb 15.2 13.0 (11.4-16.0) gm/dL Hct 45.6 39.6 (34.0-46.0) % Plt Count 261 209 (150-450) k/uL Comprehensive Metabolic Panel 05/18/24 05/19/24 Range/Units 13:06 05:10 Sodium 135 L 136 L (137-145) mmol/L Potassium 4.7 3.7 (3.5-5.1) mmol/L Chloride 96 L 101 (98-107) mmol/L Carbon Dioxide 25 28 (22-30) mmol/L BUN 40 H 26 H (7-17) mg/dL Creatinine 0.93 0.93 (0.52-1.04) mg/dL Glucose 163 H 95 (74-99) mg/dL Calcium 10.2 9.2 (8.4-10.2) mg/dL AST 32 24 (14-36) U/L ALT 22 18 (4-34) U/L Alkaline Phosphatase 80 63 (38-126) U/L Total Protein 7.2 5.8 L (6.3-8.2) g/dL Albumin 4.5 3.5 (3.5-5.0) g/dL Current Medications Generic Name Dose Route Start Last Admin Trade Name Freq PRN Reason Stop Dose Admin Acetaminophen 650 mg 05/19/24 03:09 05/19/24 03:14 Acetaminophen Tab 325 Mg Tab PO 650 mg Q6HR PRN Administration Fever and/ or Pain Alprazolam 0.25 mg 05/18/24 16:42 05/18/24 23:06 Alprazolam 0.25 Mg Tab PO 0.25 mg DAILY PRN Administration Anxiety Apixaban 5 mg 05/18/24 21:00 05/18/24 21:04 Apixaban 5 Mg Tab PO 5 mg BID TYESHA Administration Protocol Dextrose/Water 25 ml 05/18/24 18:02 Dextrose 50% Syringe 50 Ml IVP PER PROTOCOL PRN Hypoglycemia Protocol Dextrose/Water 50 ml 05/18/24 18:02 Dextrose 50% Syringe 50 Ml IVP PER PROTOCOL PRN Hypoglycemia Protocol Dorzolamide HCl 1 drops 05/18/24 21:00 05/18/24 21:05 Dorzolamide Hcl 2% Drops 10 Ml Btl BOTH EYES 1 drops BID TYESHA Administration Furosemide 40 mg 05/20/24 09:00 Furosemide 40 Mg Tab PO DAILY [facility] Hydralazine HCl 100 mg 05/18/24 21:00 05/18/24 21:04 Hydralazine Hcl 50 Mg Tab PO 100 mg BID TYESHA Administration Levothyroxine Sodium 50 mcg 05/22/24 06:30 Levothyroxine 50 Mcg Tab PO Werner@0630 [facility] Levothyroxine Sodium 100 mcg 05/19/24 06:30 05/19/24 05:49 Levothyroxine 100 Mcg Tab PO 100 mcg [id number]@0630 TYESHA Administration Morphine Sulfate 4 mg 05/18/24 14:29 Morphine Sulfate 4 Mg/Ml Syringe IV Q4HR PRN Severe Pain (Scale 7 to 10) Naloxone HCl 0.2 mg 05/18/24 14:29 Naloxone 0.4 Mg/Ml 1 Ml Vial IV Q2M PRN Opioid Reversal Ondansetron HCl 4 mg 05/18/24 14:29 Ondansetron 4 Mg/2 Ml Vial IVP Q8HR PRN Nausea And Vomiting Valsartan 160 mg 05/19/24 09:00 Valsartan 160 Mg Tab PO BID [facility] 05/19/24 05:10 05/19/24 05:10
[2024-05-19] MEDS: VALSARTAN 160 MG TAB PO SCH (08:48)
[2024-05-19] MEDS ORDERED: lisinopriL 20 MG TAB PO SCH (09:00)
[2024-05-19] MEDS: NIFEdipine XL 30 MG TAB.ER.24 PO SCH (12:19)
--- NOTE | 2024-05-19 17:34 | CA ---
Transthoracic Echo Report Name: Cleo Jacobs Age: 88 Gender: F : 1935 Exam Date: 05/19/2024 11:18 Exam Location: [place] [facility] Ht (in): 61 Wt (lb): 155 Ordering Physician: Jazzy Treviño Attending/Referring Phys: [id number], Kamila Regional Driver Siobhan Panda RDCS Procedure CPT: Indications: LVF Cardiac Hx: Technical Quality: Fair Contrast 1: Total Dose (mL): Contrast 2: Total Dose (mL): MEASUREMENTS (Male / Female) Normal Values 2D ECHO LV Diastolic Diameter PLAX 4.7 cm 4.2 - 5.9 / 3.9 - 5.3 cm LV Systolic Diameter PLAX 2.7 cm IVS Diastolic Thickness 1.2 cm 0.6 - 1.0 / 0.6 - 0.9 cm LVPW Diastolic Thickness 1.4 cm 0.6 - 1.0 / 0.6 - 0.9 cm LV Relative Wall Thickness 0.6 RV Internal Dim ED PLAX 2.4 cm LA Systolic Diameter LX 5.0 cm 3.0 - 4.0 / 2.7 - 3.8 cm LV Diastolic Volume MOD BP 58.9 cm??? 67 - 155 / 56 - 104 cm??? LV Systolic Volume MOD BP 10.9 cm??? - / 19 - 49 cm??? LV Ejection Fraction MOD BP 81.5 % >= 55 % LV Cardiac Index MOD BP 1443.5 cm???/min???m??? LV Diastolic Volume MOD 4C 63.7 cm??? LV Systolic Volume MOD 4C 13.3 cm??? LV Ejection Fraction MOD 4C 79.2 % LV Cardiac Index MOD 4C 1514.0 cm???/min???m??? LV Diastolic Length 4C 6.5 cm LV Systolic Length 4C 4.8 cm LV Diastolic Volume MOD 2C 51.1 cm??? LV Systolic Volume MOD 2C 9.0 cm??? LV Ejection Fraction MOD 2C 82.4 % LV Cardiac Index MOD 2C 1264.7 cm???/min???m??? LV Diastolic Length 2C 7.0 cm LV Systolic Length 2C 4.9 cm LA Volume 87.8 cm??? 18 - 58 / 22 - 52 cm??? LA Volume Index 49.8 cm???/m??? 16 - 28 cm???/m??? M-MODE Aortic Root Diameter MM 2.9 cm LA Systolic Diameter MM 4.6 cm LA Ao Ratio MM 1.6 AV Cusp Separation MM 1.8 cm DOPPLER AV Peak Velocity 218.9 cm/s AV Peak Gradient 19.2 mmHg AV Mean Velocity 136.5 cm/s AV Mean Gradient 9.0 mmHg AV Velocity Time Integral 48.3 cm AI Peak Velocity 376.4 cm/s AI Peak Gradient 56.7 mmHg AI Pressure Half Time 846.5 ms LVOT Peak Velocity 170.3 cm/s LVOT Peak Gradient 11.6 mmHg LVOT Velocity Time Integral 41.7 cm MV Area PHT 3.5 cm??? Mitral E Point Velocity 142.2 cm/s Mitral A Point Velocity 0.7 cm/s Mitral E to A Ratio 200.5 MV Deceleration Time 214.2 ms TR Peak Velocity 351.2 cm/s TR Peak Gradient 49.3 mmHg Right Atrial Pressure 5.0 mmHg Pulmonary Artery Systolic Pressu 54.3 mmHg Right Ventricular Systolic Press 54.3 mmHg FINDINGS Left Ventricle Left ventricular ejection fraction is estimated at 55-60 %. Mildly increased septal wall thickness. Moderately increased posterior wall thickness. Normal left ventricular systolic function with no obvious regional wall motion abnormalities. Left ventricular cavity size normal. Right Ventricle Normal right ventricular size and function. Moderate to severe pulmonary hypertension. Right Atrium Severe right atrial dilatation. Left Atrium Severely increased left atrial diameter. Severely increased left atrial volume. Mildly increased left atrial area. Mitral Valve Structurally normal mitral valve. [id number] mitral regurgitation. No mitral stenosis. Aortic Valve Trileaflet aortic valve. Diffuse thickening (sclerosis) of the aortic valve cusps without reduced excursion. Mild aortic regurgitation. Tricuspid Valve Structurally normal tricuspid valve. Moderate tricuspid regurgitation. No tricuspid stenosis. Pulmonic Valve Structurally normal pulmonic valve. Trace pulmonic regurgitation. No pulmonic stenosis. Pericardium No pericardial or pleural effusion. Aorta Normal size aortic root and proximal ascending aorta. CONCLUSIONS Indication: Acute HFpEF exacerbation LVEF 55% Mild concentric LVH No obvious regional wall motion abnormality Severe biatrial dilatation Moderate functional mitral regurgitation Moderate tricuspid regurgitation RVSP estimated at 55 mmHg, moderate to severe pulmonary hypertension. Previewed by: Dr Home Avila (Electronically Signed) Final Date: 19 May 2024 17:33
--- NOTE | 2024-05-19 17:54 | P.PN ---
Subjective Progress Note Date: 05/19/24 Hospital Course: Patient is a very pleasant 88-year-old female with a past medical history of atrial fibrillation on anticoagulation with Eliquis, hypertension, and hypothyroidism. She presented to the emergency department with a chief complaint of palpitations and elevated blood pressures. Patient reports she was just sitting there and suddenly felt as though her heart was pounding out of her chest and states that she checked her blood pressure and it was very high so she came to the emergency department for evaluation. She reports that she follows with her PCP but states she does not have a environmental compliance technician. Patient denies having any fevers, chills, diaphoresis, headache, lightheadedness, dizziness, chest pain, shortness of breath, cough or congestion, nausea, vomiting, or experiencing any numbness/tingling/weakness/swelling in her extremities. Estelita greenwood reports palpitations resolved shortly after arriving in the emergency department. Upon arrival to our facility, patient underwent evaluation in the emergency department. Vital signs upon arrival show blood pressure 191/80, heart rate 67, respiratory rate 16, temp 97.5 F, and SpO2 of 98% on room air. Patient was given labetalol in the emergency department. EKG was completed showing atrial fibrillation with a slow ventricular response of 59 bpm. Patient's heart rate decreasing in the emergency department down into the 30s. X-ray completed negative for acute cardiopulmonary process. Labs completed and reviewed. CBC unremarkable. Coagulation profile normal findings. BMP showing sodium 135, chloride 96, and mild prerenal azotemia with BUN of 40. Blood glucose 163. Liver profile unremarkable. Troponin 0.025 proBNP 977 and TSH 4.210. Patient admitted under our services with consultation to cardiology. Physical exam: Patient seen and fully evaluated at bedside. She remains in the emergency department as a hold awaiting to be taken to 3S. She currently denies having any complaints at this time stating she has had no further episodes of palpitations since arrival to our facility. Vital signs reviewed and stable. General: Nontoxic, no distress and appears stated age. Derm: Skin warm and dry, normal coloration for ethnicity. Head: Atraumatic, normocephalic and symmetric. Eyes: EOM's intact, no lid lag, and anicteric sclera Mouth: no lip lesions, mucus membranes moist Cardiovascular: Bradycardic rate regular rhythm with normal S1S2, no murmur, positive posterior tibial pulses bilaterally, and cap refill < 2 seconds. Lungs: Respirations even, regular, and unlabored on room air. Lungs CTA bilaterally, no rhonchi, no rales, no wheezing, and no accessory muscle usage. Abdominal: soft, nontender to palpation, no guarding, no appreciable organomegaly Ext: ROM intact. No gross muscle atrophy, no edema, no contractures Neuro: Speech clear, face symmetrical and CN II-XII grossly intact with no noted focal neuro deficits Psych: Alert and oriented to person, place, time, and situation. Appropriate and pleasant affect. Assessment and Plan of Care: Atrial fibrillation with a slowed ventricular response Asymptomatic bradycardia Elevated troponin Cardiology following, reviewed documentation in chart. Patient to remain on continuous telemetry monitoring. Avoid AV elena blocking agents Cardiology discontinued lisinopril, restarted patient's Procardia 30 mg daily and placed patient on valsartan 160 mg twice daily. Troponins trended, slightly uptrending from 0.025, 0.032, and 0.035. Echocardiogram to be completed Continue Eliquis 5 mg twice daily. Hypertension Monitor vital signs and continue valsartan 160 mg twice daily and hydralazine 100 mg twice daily. Hypothyroidism Continue levothyroxine 100 mcg daily with the exception of Thursday taking reduced dose of 50 mcg. TSH normal findings 4.210. Data and imaging reviewed: Labs reviewed. Troponins trended, slightly uptrending from 0.025, 0.032, and 0.035. CBC unremarkable. BMP showing mild prerenal azotemia with BUN of 26 otherwise normal findings. Blood glucose 95. Magnesium 1.9. Liver profile unremarkable. Vital signs reviewed. Blood pressure 151/78, heart rate 42, respiratory rate 16, temp 98.3 F, and SpO2 of 99% on room air. CODE STATUS: Full code DVT prophylaxis: Eliquis Anticipated discharge date: Pending clinical course Anticipated discharge place: Home Patient was seen independently by Nurse Practitioner. This document was prepared using [employer] dictation software. Please allow for errors in de alcoholizer while rare they do occur. Federico Harding NP rendered care for this patient independently, reviewed the findings and plan as documented in the note above and agree with plan. I did not physically speak with or examine the patient on this date. Objective - Vital Signs Vital signs: Vital Signs Temp 98.3 F 05/19/24 05:48 Pulse 42 L 05/19/24 08:00 Resp 16 05/19/24 08:00 BP 151/78 05/19/24 08:00 Pulse Ox 97 05/19/24 08:00 FiO2 Intake & Output 05/18/24 05/19/24 05/19/24 18:59 06:59 18:59 Weight 70.307 kg - Labs CBC & Chem 7: 05/19/24 05:10 05/19/24 05:10 Labs: Abnormal Lab Results - Last 24 Hours (Table) 05/18/24 05/18/24 05/19/24 Range/Units 13:06 20:52 05:10 Lymphocytes # 0.9 L (1.0-4.8) k/uL Sodium 135 L (137-145) mmol/L Chloride 96 L (98-107) mmol/L BUN 40 H (7-17) mg/dL Glucose 163 H (74-99) mg/dL Troponin I 0.035 H* (0.000-0.034) ng/mL Total Protein (6.3-8.2) g/dL 05/19/24 Range/Units 05:10 Lymphocytes # (1.0-4.8) k/uL Sodium 136 L (137-145) mmol/L Chloride (98-107) mmol/L BUN 26 H (7-17) mg/dL Glucose (74-99) mg/dL Troponin I (0.000-0.034) ng/mL Total Protein 5.8 L (6.3-8.2) g/dL
[2024-05-20 06:49] LABS: HCT 40.4 % (34.0-46.0); HGB 13.4 gm/dL (11.4-16.0); MCH 31.2 pg (25.0-35.0); MCHC 33.3 g/dL (31.0-37.0); MCV 93.7 fL (80.0-100.0); Mean Platelet Volume 7.3; Platelet Count 224 k/uL (150-450); RBC 4.32 m/uL (3.80-5.40); RDW 12.6 % (11.5-15.5); WBC 5.2 k/uL (3.8-10.6)
[2024-05-20 07:11] LABS: African American GFR (CKD) 59 (>60 ml/min/1.73 sqM); Anion Gap 9 mmol/L; Blood Urea Nitrogen 23 mg/dL (7-17); Carbon Dioxide 24 mmol/L (22-30); Chloride 102 mmol/L (98-107); Glucose 107 mg/dL (74-99); Magnesium 1.9 mg/dL (1.6-2.3); Non-African American GFR(CKD) 51 (>60 ml/min/1.73 sqM); Potassium 3.8 mmol/L (3.5-5.1); Sodium 135 mmol/L (137-145)
[2024-05-20] MEDS: POTASSIUM CHLORIDE ER 10 MEQ TAB.ER.PRT PO SCH (09:20)
[2024-05-20] MEDS: FUROSEMIDE 40 MG TAB PO SCH (09:20)
[2024-05-20] MEDS: SPIRONOLACTONE 25 MG TAB PO SCH (11:36)
[2024-05-20] MEDS: NIFEdipine XL 30 MG TAB.ER.24 PO SCH (11:36)
--- NOTE | 2024-05-20 14:21 | P.PN ---
Subjective Progress Note Date: 05/20/24 Hospital Course: Patient is a very pleasant 88-year-old female with a past medical history of atrial fibrillation on anticoagulation with Eliquis, hypertension, and hypothyroidism. She presented to the emergency department with a chief complaint of palpitations and elevated blood pressures. Patient reports she was just sitting there and suddenly felt as though her heart was pounding out of her chest and states that she checked her blood pressure and it was very high so she came to the emergency department for evaluation. She reports that she follows with her PCP but states she does not have a footwear sales representative. Patient denies having any fevers, chills, diaphoresis, headache, lightheadedness, dizziness, chest pain, shortness of breath, cough or congestion, nausea, vomiting, or experiencing any numbness/tingling/weakness/swelling in her extremities. Estelita greenwood reports palpitations resolved shortly after arriving in the emergency department. Upon arrival to our facility, patient underwent evaluation in the emergency department. Vital signs upon arrival show blood pressure 191/80, heart rate 67, respiratory rate 16, temp 97.5 F, and SpO2 of 98% on room air. Patient was given labetalol in the emergency department. EKG was completed showing atrial fibrillation with a slow ventricular response of 59 bpm. Patient's heart rate decreasing in the emergency department down into the 30s. X-ray completed negative for acute cardiopulmonary process. Labs completed and reviewed. CBC unremarkable. Coagulation profile normal findings. BMP showing sodium 135, chloride 96, and mild prerenal azotemia with BUN of 40. Blood glucose 163. Liver profile unremarkable. Troponin 0.025 proBNP 977 and TSH 4.210. Patient admitted under our services with consultation to cardiology. Physical exam: Patient seen and fully evaluated at bedside. Patient reports having another isolated episode of palpitations overnight but states it resolved quickly. She currently denies any chest pain, palpitations or shortness of breath at this time. Vital signs reviewed and stable. General: Nontoxic, no distress and appears stated age. Derm: Skin warm and dry, normal coloration for ethnicity. Head: Atraumatic, normocephalic and symmetric. Eyes: EOM's intact, no lid lag, and anicteric sclera Mouth: no lip lesions, mucus membranes moist Cardiovascular: Bradycardic rate regular rhythm with normal S1S2, no murmur, positive posterior tibial pulses bilaterally, and cap refill < 2 seconds. Lungs: Respirations even, regular, and unlabored on room air. Lungs CTA bilaterally, no rhonchi, no rales, no wheezing, and no accessory muscle usage. Abdominal: soft, nontender to palpation, no guarding, no appreciable or ganomegaly Ext: ROM intact. No gross muscle atrophy, no edema, no contractures Neuro: Speech clear, face symmetrical and CN II-XII grossly intact with no noted focal neuro deficits Psych: Alert and oriented to person, place, time, and situation. Appropriate and pleasant affect. Assessment and Plan of Care: Atrial fibrillation with a slowed ventricular response Elevated troponin Asymptomatic bradycardia Cardiology following, discussed plan of care in detail with cardiology CALENDER ROLL PRESS OPERATOR and footwear sales representative at bedside. Medication changes to be made and recommend continued monitoring of heart rate and blood pressure closely. Patient started on Lasix 40 mg daily and Aldactone 25 mg daily to continue with Procardia 30 mg daily and valsartan 160 mg twice daily.. Patient to remain on continuous telemetry monitoring. Avoid AV elena blocking agents Troponins trended, slightly uptrending from 0.025, 0.032, and 0.035. Echocardiogram completed showing a preserved EF of 55% with mild concentric LVH, severe biatrial dilation, moderate functional mitral regurgitation, moderate tricuspid regurgitation, and RVSP of 55 mmHg showing moderate to severe pulmonary hypertension. Continue Eliquis 5 mg twice daily. Hypertension Monitor vital signs and continue valsartan 160 mg twice daily and hydralazine 100 mg twice daily. Hypothyroidism Continue levothyroxine 100 mcg daily with the exception of Thursday taking reduced dose of 50 mcg. TSH normal findings 4.210. Data and imaging reviewed: Labs reviewed. CBC unremarkable. BMP showing sodium 135, BUN of 23, blood glucose of 107. Magnesium 1.9. Vital signs reviewed. Blood pressure 161/81, heart rate 46, respiratory rate 16, temp 97.9 F, and SpO2 of 97% on room air. Echocardiogram completed showing a preserved EF of 55% with mild concentric LVH, severe biatrial dilation, moderate functional mitral regurgitation, mo derate tricuspid regurgitation, and RVSP of 55 mmHg showing moderate to severe pulmonary hypertension. CODE STATUS: Full code DVT prophylaxis: Eliquis Anticipated discharge date: Pending clinical course, likely tomorrow morning pending cardiology clearance Anticipated discharge place: Home Patient was seen independently by Nurse Practitioner. This document was prepared using [employer] dictation software. Please allow for errors in superintendent meters while rare they do occur. Federico Harding CALENDER ROLL PRESS OPERATOR rendered care for this patient independently, reviewed the findings and plan as documented in the note above and agree with plan. I did not physically speak with or examine the patient on this date. Objective - Vital Signs Vital signs: Vital Signs Temp 98.0 F 05/20/24 08:13 Pulse 45 L 05/20/24 08:13 Resp 16 05/20/24 08:13 BP 183/90 05/20/24 08:13 Pulse Ox 97 05/20/24 08:13 FiO2 Intake & Output 05/19/24 05/20/24 05/20/24 18:59 06:59 18:59 Intake Total 240 20 118 Balance 240 20 118 Weight 70.307 kg 72.2 kg Intake: IV 20 Invasive Line 1 20 Oral 240 118 Other: Voiding Method Toilet # Voids 1 1 1 - Labs CBC & Chem 7: 05/20/24 06:05 05/20/24 06:05 Labs: Abnormal Lab Results - Last 24 Hours (Table) 05/20/24 Range/Units 06:05 Sodium 135 L (137-145) mmol/L BUN 23 H (7-17) mg/dL Glucose 107 H (74-99) mg/dL
--- NOTE | 2024-05-20 15:09 | P.PN ---
Subjective Progress Note Date: 05/20/24 Reason for Consult (text): Bradycardia History of present illness: This is an 88-year-old female patient of Dr. Mahoney with past medical history of hypertension, hypothyroidism, COVID-19, TIA, atrial fibrillation with bradycardia. We have been asked to evaluate the patient for bradycardia. Patient states that 2 nights ago she felt that her blood pressure was high. She checks it on a daily basis. She also had a sensation that her heart was pound ing in her chest which she does not normally have. She denies having any weakness, dizziness, lightheadedness, no syncope or near syncope. She denies headache or blurred vision. No dyspnea on exertion. She states that her heart rate usually runs in the high 30s or low 40s and has been for years. She states that she was previously on a medication like lisinopril hydrochlorothiazide but was taken off it last summer by her PCP and she was not sure why. She states she filled up with fluid after that and was placed on Lasix and has been continued on that since. Patient also states that she has recently moved in with her daughter and gave up her home of 59 years and this has been very stres sful. She her daughter states that she has had some anxiety or panic attacks periodically over her life span. Manual blood pressure 151/68. -EKG: X 3 with atrial fibrillation running between 33 and 59 bpm. -Chest x-ray: No acute process. -Laboratory studies: CBC normal. Sodium 136, BUN 26, creatinine 0.93. Troponin 0.025, 0.032 and 0.035. -Home cardiac medications: Eliquis 5 mg twice daily, Lasix 40 mg daily, hydralazine 100 mg twice daily, lisinopril 40 mg daily, Procardia XL 30 mg daily, potassium 10 mEq daily. -Echocardiogram performed 05/03/2020 revealed EF of 55 to 60%, trace AR, mild MR and TR. 05/20 Patient is seen and examined on the cardiac stepdown unit. Her blood pressure readings are elevated but a manual blood pressure came back at 140/60. Yesterday, patient was started on valsartan versus lisinopril and Procardia was changed to noon dosing. We have Lasix to resume today at 40 mg daily which is her home dose. Heart rate is running in the 40s, pulse ox 90% on room air. Repeat blood work reveals sodium 135, potassium 3.8, BUN 23 creatinine 1.0. Echocardiogram reveals EF 55% with mild concentric LVH. Severe biatrial dilatation. Moderate functional mitral regurgitation, moderate tricuspid regurgitation, RVSP 55 with moderate to severe pulmonary hypertension. Physical examination: Gen: This is an 88-year-old female in no acute distress. VS: reviewed HEENT: Head is atraumatic, normocephalic. Pupils equal, round. Sclerae is anicteric. NECK: Supple. No JVD. LUNGS: Clear to auscultation. No wheezes or rhonchi. No intercostal retractions. HEART: Irregular rate and rhythm. No murmur. ABDOMEN: Soft No tenderness. EXTREMITIES: No pedal edema. No calf tenderness. NEUROLOGICAL: Patient is awake, alert and oriented x3. Assessment: Uncontrolled hypertension Chronic atrial fibrillation Chronic bradycardia Hypertension Hypothyroidism TIA Moderate to severe pulmonary hypertension Moderate mitral regurgitation and moderate tricuspid regurgitation Plan: Continue patient's home cardiac medications with the following changes Continue patient on valsartan 160 mg twice daily Change Procardia 30 mg at noon P.o. Lasix 40 mg daily resume today Monitor blood pressure closely Further recommendations to follow based upon clinical course Nurse practitioner note has been reviewed, I agree with documented findings and plan of care. Patient was seen and examined. Objective - Vital Signs Vital signs: Vital Signs Temp 97.9 F 05/20/24 10:08 Pulse 46 L 05/20/24 10:08 Resp 16 05/20/24 10:08 BP 161/81 05/20/24 10:08 Pulse Ox 97 05/20/24 10:08 FiO2 Intake & Output 05/19/24 05/20/24 05/20/24 18:59 06:59 18:59 Intake Total 240 20 128 Balance 240 20 128 Weight 70.307 kg 72.2 kg Intake: IV 20 10 Invasive Line 1 20 10 Oral 240 118 Other: Voiding Method Toilet Toilet # Voids 1 1 1 - Labs CBC & Chem 7: 05/20/24 06:05 05/20/24 06:05 Labs: Abnormal Lab Results - Last 24 Hours (Table) 05/20/24 Range/Units 06:05 Sodium 135 L (137-145) mmol/L BUN 23 H (7-17) mg/dL Glucose 107 H (74-99) mg/dL
[2024-05-21 03:38] VITALS: TEMP 98.1
[2024-05-21 07:45] LABS: African American GFR (CKD) 60 (>60 ml/min/1.73 sqM); Anion Gap 7 mmol/L; Blood Urea Nitrogen 25 mg/dL (7-17); Calcium 9.3 mg/dL (8.4-10.2); Carbon Dioxide 26 mmol/L (22-30); Chloride 101 mmol/L (98-107); Glucose 92 mg/dL (74-99); Non-African American GFR(CKD) 52 (>60 ml/min/1.73 sqM); Potassium 3.8 mmol/L (3.5-5.1); Sodium 134 mmol/L (137-145)
--- NOTE | 2024-05-21 08:26 | P.PN ---
Subjective Progress Note Date: 05/21/24 This is Hayes Winston NP, I'm dictating on behalf of Dr. Chowdary's H&P and A&P. Patient was interviewed and examined. Patient is a pleasant 88-year-old female who we were consulted on for bradyc ardia. Patient reports that she is doing okay today. Reports that she slept good last night. Blood pressures are improved when compared to admission. Patient remains bradycardic in atrial fibrillation. GENERAL: Well-appearing, well-nourished and in no acute distress. NECK: Supple without JVD or thyromegaly. LUNGS: Breath sounds clear to auscultation bilaterally. Respiration equal and unlabored. No wheezes, rales or rhonchi. HEART: Regular rate and rhythm without murmurs, rubs or gallops. S1 and S2 heard. EXTREMITIES: Normal range of motion, no edema. No clubbing or cyanosis. Peripheral pulses intact and strong. VITALS: Temp 98.1, pulse 44, respirations 18, blood pressure 142/58, O2 saturation 95% on room air TELEMETRY: Atrial fibrillation LABS: Sodium 134, potassium 3.8, BUN 25, creatinine 0.98, calcium 9.3 IMPRESSION: 1. Uncontrolled hypertension 2. Chronic atrial fibrillation 3. Chronic bradycardia 4. Hypertension 5. Hypothyroidism 6. TIA 7. Moderate to severe pulmonary hypertension 8. Moderate mitral regurgitation and moderate tricuspid regurgitation PLAN: Continue current medications as prescribed. If her blood pressure is still not controlled after 1 week then hydralazine can go to 3 times a day. Will sign off. Patient can be discharged from a cardiology standpoint. Follow-up with Dr. Wilson in 1 to 2 weeks. Objective - Vital Signs Vital signs: Vital Signs Temp 98.1 F 05/21/24 03:37 Pulse 44 L 05/21/24 03:37 Resp 18 05/21/24 03:37 BP 142/58 05/21/24 03:37 Pulse Ox 95 05/21/24 03:37 FiO2 Intake & Output 05/20/24 05/21/24 05/21/24 18:59 06:59 18:59 Intake Total 148 20 Balance 148 20 Weight 71.6 kg Intake: IV 30 20 Invasive Line 1 30 20 Oral 118 Other: Voiding Method Toilet Toilet # Voids 1 1 - Labs CBC & Chem 7: 05/20/24 06:05 05/21/24 06:41 Labs: Abnormal Lab Results - Last 24 Hours (Table) 05/21/24 Range/Units 06:41 Sodium 134 L (137-145) mmol/L BUN 25 H (7-17) mg/dL
[2024-05-21 08:30] VITALS: BP 134/60; PULSE 48; RESP 16
--- NOTE | 2024-05-21 10:02 | P.DS ---
Providers Date of admission: 05/18/24 14:32 Expected date of discharge: 05/21/24 Attending physician: Zay Mercer MD Consults: 05/18/24 14:29 Consult Physician Routine Consulting Provider: Tj Wilson Consult Reason/Comments: yuko Do you want consulting provider notified?: Yes Primary care physician: Brad Medina Hospital Course: Discharge Diagnosis: Hypertension Atrial fibrillation with slow ventricular response Elevated troponin Hypothyroidism Diastolic heart failure Moderate to severe pulmonary hypertension Valvular heart disease Hospital Course: Patient is a very pleasant 88-year-old female with a past medical history of atrial fibrillation on anticoagulation with Eliquis, hypertension, and hypothyroidism. She presented to the emergency department with a chief complaint of palpitations and elevated blood pressures. Patient reports she was just sitting there and suddenly felt as though her heart was pounding out of her chest and states that she checked her blood pressure and it was very high so she came to the emergency department for evaluation. She reports that she follows with her PCP but states she does not have a tech writer. Patient denies having any fevers, chills, diaphoresis, headache, lightheadedness, dizziness, chest pain, shortness of breath, cough or congestion, nausea, vomiting, or experiencing any numbness/tingling/weakness/swelling in her extremities. Patient reports palpitations resolved shortly after arriving in the emergency department. Upon arrival to our facility, patient underwent evaluation in the emergency department. Vital signs upon arrival show blood pressure 191/80, heart rate 67, respiratory rate 16, temp 97.5 F, and SpO2 of 98% on room air. Patient was given labetalol in the emergency department. EKG was completed showing atrial fibrillation with a slow ventricular response of 59 bpm. Patient's heart rate decreasing in the emergency department down into the 30s. X-ray completed negative for acute cardiopulmonary process. Labs completed and reviewed. CBC unremarkable. Coagulation profile normal findings. BMP showing sodium 135, chloride 96, and mild prerenal azotemia with BUN of 40. Blood glucose 163. Liver profile unremarkable. Troponin 0.025 proBNP 977 and TSH 4.210. Patient admitted under our services with consultation to cardiology. Troponin up trended to 0.035. No active chest pain. Echocardiogram showed LVEF 55%, moderate to severe pulmonary hypertension, moderate tricuspid regurgitation, moderate functional mitral regurgitation. Patient started on valsartan and Aldactone. Blood pressure better controlled. Follow-up outpatient with cardiology, may need to increase frequency of hydralazine. Patient seen and examined at bedside. Vital signs reviewed and stable. General: Nontoxic, no distress, appears at stated age Derm: Warm, dry Head: Atraumatic, normocephalic, symmetric Eyes: EOMI, no lid lag, anicteric sclera Mouth: No lip lesion, mucus membranes moist Cardiovascular: S1S2 reg, systolic murmur Lungs: CTA bilateral, no rhonchi, no rales, no accessory muscle use Abdominal: Soft, nontender to palpation, no guarding, no appreciable organomegaly Ext: No gross muscle atrophy, no edema, no contractures Neuro: CN II-XI grossly intact, no focal neuro deficits Psych: Alert, oriented, appropriate affect A total of 32 minutes of time were spent preparing this complex discharge summary. Patient was discharged on 05/21/2024 at 949. Patient Condition at Discharge: Stable Plan - Discharge Summary Discharge Rx Participant: Yes New Discharge Prescriptions: New Valsartan [Diovan] 160 mg PO BID #120 tab Spironolactone [Aldactone] 25 mg PO DAILY #60 tab Continue ALPRAZolam [Xanax] 0.25 mg PO DAILY PRN PRN Reason: Anxiety Apixaban [Eliquis] 5 mg PO BID #60 tab Levothyroxine Sodium [Synthroid] 100 mcg PO MOTUWETHFRSA Furosemide [Lasix] 40 mg PO DAILY Dorzolamide 2% [Trusopt 2%] 1 drop BOTH EYES BID Levothyroxine Sodium [Synthroid] 50 mcg PO WERNER Amitriptyline HCl [Elavil] 10 mg PO HS hydrALAZINE HCL [Apresoline] 100 mg PO BID Potassium Chloride ER [K-Dur 20] 10 meq PO DAILY Changed NIFEdipine XL [Procardia XL] 30 mg PO 1200 #0 Discontinued lisinopriL 40 mg PO DAILY Discharge Medication List ALPRAZolam [Xanax] 0.25 mg PO DAILY PRN 05/02/20 [History] Apixaban [Eliquis] 5 mg PO BID #60 tab 05/04/20 [Rx] Levothyroxine Sodium [Synthroid] 50 mcg PO WERNER 09/06/21 [History] Levothyroxine Sodium [Synthroid] 100 mcg PO MOTUWETHFRSA 09/06/21 [History] Amitriptyline HCl [Elavil] 10 mg PO HS 05/18/24 [History] Dorzolamide 2% [Trusopt 2%] 1 drop BOTH EYES BID 05/18/24 [History] Furosemide [Lasix] 40 mg PO DAILY 05/18/24 [History] Potassium Chloride ER [K-Dur 20] 10 meq PO DAILY 05/18/24 [History] hydrALAZINE HCL [Apresoline] 100 mg PO BID 05/18/24 [History] NIFEdipine XL [Procardia XL] 30 mg PO 1200 #0 05/21/24 [Rx] Spironolactone [Aldactone] 25 mg PO DAILY #60 tab 05/21/24 [Rx] Valsartan [Diovan] 160 mg PO BID #120 tab 05/21/24 [Rx] Follow up Appointment(s)/Referral(s): Tj Wilson MD [STAFF PHYSICIAN] - 1 Week (Please call Thursday to schedule follow up appoitment) Brad Malone DO [Primary Care Provider] - 1-2 days (Please call Thursday to schedule follow up appoitment) Patient Instructions/Handouts: A-fib (Atrial Fibrillation) (DC), Chronic Hypertension (DC), Bradycardia (DC) Activity/Diet/Wound Care/Special Instructions: Please see PCP and cardiology. Discharge/Stand Alone Forms: Who Do I Call? Discharge Disposition: HOME SELF-CARE
[2024-05-22] MEDS ORDERED: LEVOTHYROXINE 50 MCG TAB PO SCH (06:30)
== END 2024-05-21 10:34 | disposition home or self-care (01) ==
LOC: EC 12:24 → INTOOBSV 14:32 → 3SCARD 14:32 → UNDODISIN 05-21 10:34
PROVIDERS: ADMIT Internal Medicine; ATTEND Internal Medicine
DX: I48.20 Chronic atrial fibrillation, unspecified (principal); I11.0 Hypertensive heart disease with heart failure; I50.32 Chronic diastolic (congestive) heart failure; I27.20 Pulmonary hypertension, unspecified; E03.9 Hypothyroidism, unspecified; R00.1 Bradycardia, unspecified; I08.1 Rheumatic disorders of both mitral and tricuspid valves; Z86.16 Personal history of COVID-19; Z86.73 Personal history of transient ischemic attack (TIA), and cerebral infarction without residual deficits; Z79.890 Hormone replacement therapy; Z79.899 Other long term (current) drug therapy
CPT/HCPCS: 96361; 96374; 99291; 36415; 93005; 93306; 83880; 80053 ×2; 80048 ×2; 83735 ×3; 84100; 84443; 84484; 85025 ×2; 85027; 85610; 85730; 83036; 71046; G0378 ×4; J1920